=== PATIENT | male | born 1990 | race Caucasian/White ===

== ENCOUNTER 2024-06-14 11:54 | Outpatient (REF) | payer OTHER, SELFPAY ==
[2024-06-14 13:41] LABS: Hematocrit 41.3 % (42.0-52.0); Mean Corpuscular HGB Conc 33.9 g/dl (31.0-36.0); Mean Corpuscular Hemoglobin 31.5 pg (27.0-33.0); Mean Platelet Volume 10.8 fL (9.4-12.4); Platelet Count 223 X10*3/uL (160-400); Red Blood Count 4.44 X10*6/uL (4.60-5.80); Red Cell Distribution Width 12.1 % (11.0-16.0); White Blood Count 5.4 X10*3/uL (4.8-10.8)
[2024-06-14 13:50] LABS: Estimated Average Glucose 85 mg/dL; Hemoglobin A1c % 4.6 % (<6.0)
[2024-06-14 14:06] LABS: Alanine Aminotransferase 18 U/L (0-40); Albumin Level 4.4 g/dL (3.5-5.0); Alkaline Phosphatase 81 U/L (39-117); Anion Gap 9 (12-20); Aspartate Amino Transferase 19 U/L (5-37); Bilirubin Total 0.6 mg/dL (0.0-1.0); Blood Urea Nitrogen 12 mg/dL (9-16); Calcium 9.3 mg/dL (8.4-10.2); Carbon Dioxide 27 mmol/L (22-29); Chloride 108 mmol/L (96-108); Estimated Glomerular Filt Rate > 60; Glucose Random 89 mg/dL (60-115); Sodium 140 mmol/L (135-145)
[2024-06-15 08:15] LABS: Syphilis Screen Nonreactive (Nonreactive)
[2024-06-15 08:48] LABS: HIV AB/AG Nonreactive (Nonreactive); HIV Num 1 0.05 S/CO (0.00-0.99); Hepatitis B Surface Antigen Negative (Negative); ~HepC Num1 0.09 S/CO (0.00-0.79); ~Hepatitis C Antibody Nonreactive (Nonreactive)
[2024-06-15 13:36] LABS: CT PCR NOT DETECTED (Not Detect.); NG PCR NOT DETECTED (Not Detect.)
== END 2024-06-14 11:55 | disposition home or self-care (01) ==
LOC: HO.HHCL 11:54
PROVIDERS: Visit Provider Student in an Organized Health Care Education/Training Program
DX: R21 Rash and other nonspecific skin eruption (principal); Z13.1 Encounter for screening for diabetes mellitus
CPT/HCPCS: 36415; 80053; 83036; 85027; 86780; 86803; 87340; 87389; 87491; 87591

== ENCOUNTER 2024-12-13 15:06 | Outpatient (REF) | payer OTHER, SELFPAY ==
[2024-12-13 16:38] LABS: Alanine Aminotransferase 38 U/L (0-40); Albumin Level 4.4 g/dL (3.5-5.0); Alkaline Phosphatase 71 U/L (39-117); Aspartate Amino Transferase 25 U/L (5-37); Bilirubin Direct 0.2 mg/dL (0.0-0.5); Bilirubin Total 0.5 mg/dL (0.0-1.0); Total Protein 7.2 g/dL (6.5-8.0)
--- OUTSIDE RECORDS SUMMARY | 2024-12-13 17:30 | XMS_ITS | Encounter Summary ---
Author Organization [employer] Address [address] [facility] 7t [place] [address] Care Team Providers Care Second Class Welder Name Role Phone Name, Rehan ABEL Primary Care Provider [phone] Tasia Queen Unavailable Unavailable Encounter Details Date Type Department Care Team (Latest Contact Info) Description 10/19/2018 Abstract [facility], Provider, DDS Social History Tobacco Use Types Packs/Day Years Used Date Smoking Tobacco: Never Assessed Sex and Gender Information Value Date Recorded Sex Assigned at Male 07/28/2022 4:34 PM EDT Legal Sex Male 8:38 PM EDT Gender Identity Choose not to disclose 3 1:34 PM EST Sexual Orientation Don't know 10/11/2022 1: 34 PM EST documented as of this encounter Plan of Treatment Upcoming Encounters Date Type Department Care Team (Late st Contact Info) Description 01/10/2025 3:00 PM EDT Clinical Support [facility] [address] [place] [phone] Alyx Vasquez, RN 230 [place] [address] 02/14/2025 3:00 PM EDT Office Visit [facility] [address] [place] [address] Inez Sue LLD 9 [place] [address] 03/05/2025 9:15 AM EDT Office Visit [facility] [address] [place] [address] [phone] Denisa Lemus MD 230 [place] [address] 03/07/2025 2:00 PM EDT Office Visit [facility] 230 [place], [place] [phone] Rosanne Locke CNM 230 [place], [place] [phone] documented as of this encounter Visit Diagnoses Not on filedocumented in this encounter Care Teams Second Class Welder Relationship Specialty Start Date End Date Name, MD Rehan [address] [place] [address] [phone] PCP - General Family Medicine 09/24/19 09/28/23 Tasia Queen Health Navigator Financial Counseling and Assistance Services 10/30/24 documented as of this encounter
--- OUTSIDE RECORDS SUMMARY | 2024-12-13 17:30 | XMS_ITS | Encounter Summary ---
Author Organization [employer] Address [address] 7[address] [place] [address] Care Team Providers Care Coat Hanger Shaper Machine Operator Name Role Phone Tasia Queen Unavailable Unavailable Encounter Details Date Type Department Care Team (Latest Contact Info) Description 12/02/2024 Travel Social History Tobacco Use Types Packs/Day Years Used Date Smoking Tobacco: Never Passive Smoke Exposure: Never Smokeless Tobacco: Never Alcohol Use Standard Drinks/Week Comments Yes 0 (1 standard drink = 0.6 oz pur e alcohol) Alcohol Answer Date Recorded How often do you have a drink containing alcohol ? 0 10/30/2024 How many drinks containing a lcohol do you have on a typical day when you are drinking? 0 10/30/2024 How often do you have six or more drinks on one occasion? 0 10/30/2024 Housing Stability Answer Date Recorded What is your housing situation today? I have livdontae morales 10/30/[address] you li ve. Do you have problems with any of the following? None of the above 10/30/2024 Food Insecurity Answer Date Recorded Within the past 12 months, y ou worried that your food would run out before you got money to buy more: Never True 10/30/2024 Within the past 12 months,th e food you bought just didn't last and you didn't have enough money to get more: Never True 12/2024 Transportation Answer Date Recorded In the past 12 months, has l ack of transportation kept you from medical appts, meetings, work or from getting things needed for daily living? No 10/30/2024 Intimate Partner Violence Answer Date R ecorded Within the last year, have y ou been afraid of your partner or ex-partner? 2 10/30/2024 Within the last year, have y ou been humiliated or emotionally abused in other ways by your partner or ex-partner? 2 Within the last year, have y ou been kicked, hit, slapped, or otherwise physically hurt by your partner or ex-partner? 2 10/30/2024 Within the last year, have y ou been raped or forced to have any kind of sexual activity by your partner or ex-partner? 2 10/30/2024 Utilities Answer Date Recorded In the past 12 months, has t he [employer], gas, oil or water [employer] threatened to shut off services in your home? No 10/30/2024 Internet Access Answer Date Recorded Internet Access Q1 Yes 10/30/2024 Internet Access Q2 Not on file 10/30/2024 Sex and Gender Information Value Date Recorded [...] Description 01/10/2025 3:00 PM EDT Clinical Support [facility] [address] [place] [phone] Alyx Vasquez, DERRICK [address] [place] [phone] 02/14/2025 3:00 PM EDT Office Visit [facility] [address] [place] [address] Inez Sue LLD 9 [place] [address] 03/05/2025 9:15 AM EDT Office Visit [facility] [address] [place] [phone] Denisa Lemus MD [address] [place] [phone] 03/07/2025 2:00 PM EDT Office Visit [facility] 230 [place] [address] Rosanne Locke CNM [address] [place] [address] documented as of this encounter Visit Diagnoses Not on filedocumented in this encounter Care Teams Coat Hanger Shaper Machine Operator Relationship Specialty Start Date End Date Tasia Queen Health Navigator Financial Counseling and Assistance Services 10/30/24 documented as of this encounter
--- OUTSIDE RECORDS SUMMARY | 2024-12-13 17:30 | XMS_ITS | Encounter Summary ---
Author Organization [employer] Address [address] 7t [place] [address] Care Team Providers Care Mid Level Java Developer Name Role Phone Tasia Queen Unavailable Unavailable Encounter Details Date Type Department Care Team (Latest Contact Info) Description 12/13/2024 Travel Social History Tobacco Use Types Packs/Day [...] the past 12 months, has t he [employer], gas, oil or water [employer] threatened to shut off services in your [...] Description 01/10/2025 3:00 PM EDT Clinical Support [facility] [address] [place] [phone] Aylx Vasquez, DERRICK [address] [place] [phone] 02/14/2025 3:00 PM EDT Office Visit [facility] Dental [address] [place] [phone] Inez Sue LLD 9 [place] [address] 03/05/2025 9:15 AM EDT Office Visit [facility] [address] [place] [address] Denisa Lemus MD [address] [place] [phone] 03/07/2025 2:00 PM EDT Office Visit [facility] 230 [place] [address] Rosanne Locke CNM 230 [place] [address] documented as of this encounter Visit Diagnoses Not on filedocumented in this encounter Care Teams Mid Level Java Developer Relationship Specialty Start Date End Date Tasia Queen Health Navigator Financial Counseling and Assistance Services 10/30/24 documented as of this encounter
--- OUTSIDE RECORDS SUMMARY | 2024-12-13 17:30 | XMS_ITS | Encounter Summary ---
Author Organization [employer] Address [address] [facility] 7t [place] [address] Care Team Providers Care Hazmat Tanker Driver Name Role Phone Tasia Queen Unavailable Unavailable Encounter Details Date Type Department Care Team (Late st Contact Info) Description 11/29/2024 Orders Only [facility] 230 [place] [address] Carolina Yanes RN Social History Tobacco Use Types Packs/Day Years [...] is your housing situation today? I have liv morales 10/30/[address] you [...] the past 12 months, has t he electric, gas, oil or water company threatened to shut off services in your home? No 10/30/2024 Internet Access Answer Date Recorded Internet Access Q1 Yes 10/30/2024 Internet Access Q2 Not on file 10/30/2024 Sex and Gender Information Value Date Recorded Sex Assigned at Male 07/28/2022 4:34 PM EDT Legal Sex Male 8:38 PM EDT Gender Identity Choose not to disclose 1:34 PM EST Sexual Orientation Don't know 10/11/2022 1: 34 PM EST documented as of this encounter Plan of Treatment Upcoming Encounters Date Type Department Care Team (Late st Contact Info) Description 01/10/2025 3:00 PM EDT Clinical Support [address] [address] Alyx Vasquez RN 230 [place] [address] 02/14/2025 3:00 PM EDT Office Visit [facility] Dental 70 [place] [address] Inez Sue LLD [address] [place] [phone] 03/05/2025 9:15 AM EDT Office Visit [facility] [address] [place] [address] Denisa Lemus MD [address] [place] [address] [phone] 03/07/2025 2:00 PM EDT Office Visit [facility] [address] [place] [phone] Rosanne Locke CNM [address] [place] [phone] documented as of this encounter Procedures Procedure Name Priority Date/Time Associated Diagnosis Comments HEPATIC FUNCTION PANEL Routine 12/13/2024 3:11 PM EDT CHLAMYDIA/GONORRHEA THROAT SWAB ([place] DPH) Routine 11/22/2024 CHLAMYDIA/GONORRHEA - URINE ([place] DP) Routine 11/22/2024 SYPHILIS ABS ([place] DP) Routine 11/22/2024 HEPATITIS C ANTIBODY ([place] DP) Routine 11/22/2024 HIV ANTIBODY/ANTIGEN ([place] DP) Routine 11/22/2024 documented in this encounter Results * Hepatic Function Panel (12/13/2024 3:11 PM EDT) Bilirubin, Total 0.5 0.0 - 1.0 mg/dL [facility] Bilirubin, Direct 0.2 0.0 - 0.5 mg/dL [facility] Aspartate Amino Transferase 25 5 - 37 U/L [facility] Alanine Aminotransferase 38 0 - 40 U/L [facility] Total Protein 7.2 6.5 - 8.0 g/dL [facility] Albumin Level 4.4 3.5 - 5.0 g/dL [facility] Alkaline Phosphatase 71 39 - 117 U/L [facility] 12/13/2024 3:11 PM EDT 12/13/2024 4:20 PM EDT us Rosanne FERMINM LAB BLOOD ORDERABLES Rebecca l Result [facility] [address] [place] [address] [phone] * HIV Ab/Ag ([place] DPH) (11/22/2024) HIV Ag/Ab Nonreactive Blood 11/22/2024 Result [facility] Provider LAB BLOOD ORDERABLES Rebecca l Result * Hepatitis C Antibody ([place] DPH) (11/22/2024) Hepatitis C Ab Nonreactive Blood 11/22/2024 Result [facility] Provider LAB BLOOD ORDERABLES Rebecca l Result * Syphilis Antibodies (DPH) (11/22/2024) Syphilis Abs Nonreactive Borderline, Nonreactive, Weakly Reactive, Inconclusive, Specimen unsatisfactory for evaluation Blood Venous blood specimen / Unknown 11/22/2024 Result [facility] Provider LAB BLOOD ORDERABLES Rebecca l Result * Chlamydia/Gonorrhea Throat Swab ([place] DPH) (11/22/2024) Chlamydia Throat Swab Negative Gonorrhea Throat Swab Negative Swab 11/22/2024 Result [facility] Provider LAB MICROBIOLOGY - GENERA L ORDERABLES Final Result * Chlamydia/Gonorrhea, Urine ([place] DPH) (11/22/2024) Chlamydia, Urine Negative Negative, Indeterminate, None Detected, Invalid, Specimen unsatisfactory for evaluation, Weakly Positive Gonorrhea, Urine Negative Negative, Indeterminate, None Detected, Invalid, Specimen unsatisfactory for evaluation, Weakly Positive Urine 11/22/2024 us Historical Provider MD LAB URINE ORDERABLES Rebecca l Result documented in this encounter Visit Diagnoses Not on filedocumented in this encounter Care Teams Hazmat Tanker Driver Relationship Specialty Start Date End Date Tasia Queen Health Navigator Financial Counseling and Assistance Services 10/30/24 documented as of this encounter
--- OUTSIDE RECORDS SUMMARY | 2024-12-13 17:30 | XMS_ITS | Encounter Summary ---
Author Organization [employer] Address [address] 7t [place] [address] Care Team Providers Care Robotics Technologist Name Role Phone Tasia Queen Unavailable Unavailable Encounter Details Date Type Department Care Team (Latest Contact Info) Description 11/16/2024 Travel Social History Tobacco Use Types Packs/Day [...] the past 12 months, has t he [email or web address], gas, oil or water [employer] threatened to shut off services in your [...] Description 01/10/2025 3:00 PM EDT Clinical Support [facility] [address] [place] [phone] Alyx Vasquez, DERRICK [address] [place] [phone] 02/14/2025 3:00 PM EDT Office Visit [facility] Dental [address] [place] [address] Inez uSe LLD 9 [place] [address] 03/05/2025 9:15 AM EDT Office Visit [facility] [address] [place] [phone] Denisa Lemus MD [address] [place] [phone] 03/07/2025 2:00 PM EDT Office Visit [facility] 230 [place] [address] Rosanne Locke CNM 230 [place] [address] documented as of this encounter Visit Diagnoses Not on filedocumented in this encounter Care Teams Robotics Technologist Relationship Specialty Start Date End Date Tasia Queen Health Navigator Financial Counseling and Assistance Services 10/30/24 documented as of this encounter
--- OUTSIDE RECORDS SUMMARY | 2024-12-13 17:30 | XMS_ITS | Clinical Summary ---
Author Organization [employer] Address [address] [facility] 7t [place] [address] Care Team Providers Care Fuel Manager Name Role Phone Tasia Queen Unavailable Unavailable Allergies No known active allergies Medications Cabotegravir ER 600 MG/3ML Suspension Extended Release Inject 1 each into the muscle 1 (one) time for 1 dose. Ventrogluteal. Bring to office for injection 3 mL 1 5 12/05/19 25 Hospital, Clinic, or Other Facility Administered Medication Ordered Dose Route Frequency Start Date End Date Status Cabotegravir ER Suspension Extended Release 600 mgIndications:On pre-exposure prophylaxis for HIV 600 mg IM Once 12/13/2024 12/13/2024 Ended Active Problems Problem Noted Date Diagnosed Date Skin rash 06/14/2024 Assessment & Plan (06/14/2024 7:44 PM EDT): Rash in groins appears intertrigo from sweating Urinediptisk neg -advised to keep skin dry and to change frequently underwear -clotrimazole /topical steroids BID x 3 to 4 weeks -cbc,chem , hb1AC , STI test -will call pt w results -alarm signs and symptoms -added to [facility] New Patient wait list as of 06/04/24 from documentation Lumbago with sciatica, left side 08/17/2022 Overweight 08/17/2022 Seasonal allergies 08/17/2022 Encounters Date Type Department Care Team Description 12/13/2024 3:00 PM EDT Clinical Support [facility] MED[facility]INE [address] [place] [address] Alyx Vasquez, DERRICK On pre-exposure prophylaxis for HIV 12/13/2024 Travel 12/12/2024 Travel 12/04/2024 11:00 AM EDT Office Visit [facility]INE [address] [place] [address] Rosanne Locke CNM Encounter for pre-exposure prophylaxis for HIV (Primary Dx) 12/04/2024 Travel 12/02/2024 Travel 11/29/2024 Orders Only [facility] MEDICINE [address] [place] [address] Carolina Yanes RN 11/16/2024 Travel 10/30/2024 Patient Outreach [facility] Case Management [address] [place] [address] Tasia Queen Insurance Intervention (Updates) 10/30/2024 Patient Outreach [facility] Case Management [address] [place] [address] Henrry Guallpa [facility] Medical Appt from Last 3 Months Immunizations Name Administration Dates Next Due Hep B, adult 10/13/2021,08/13/2019,07/16/2019 IPV 04/17/2018 Influenza, IIV3, injectable 10/13/2021, 9 MMR 04/17/2018 Tdap 04/17/2018 Social History Tobacco Use Types Packs/Day Years [...] the past 12 months, has t he [employer], oil or water [employer] threatened to shut off services in your [...] Don't know 10/11/2022 1: 34 PM EST Last Filed Vital Signs Vital Sign Reading Time Taken Comments Blood Pressure 119/69 12/04/2024 10:53 AM EDT Pulse 66 12/04/2024 10:53 AM EDT Temperature 36.6 ??C (97.9 ??F) 12/04/2024 10:53 AM E DT Respiratory Rate 21 12/04/2024 10:53 AM EDT Oxygen Saturation 99% 12/04/2024 10:53 AM EDT Inhaled Oxygen Concentration - - Weight 85.3 kg (188 lb) 12/04/2024 10:53 AM EDT Height 174 cm (5' 8.5 ) 06/14/2024 10:32 AM EDT Body Mass Index 28.17 06/14/2024 10:32 AM EDT Plan of Treatment Upcoming Encounters Date Type Department Care Team (Late st Contact Info) Description 01/10/2025 3:00 PM EDT Clinical Support [facility] MEDICINE [address] [place] [address] Alyx Vasquez, RN [address] [place] [address] 02/14/2025 3:00 PM EDT Office Visit [facility] Dental [address] [place] [address] Inez Sue LLD 9 [place] [address] 03/05/2025 9:15 AM EDT Office Visit [address] [address] Denisa Lemus MD [address] [place] [phone] 03/07/2025 2:00 PM EDT Office Visit [address] [address] Rosanne Locke CNM [address] [place] [address] Health Maintenance Due Date Last Done Comments Depression Screening 1989 Lipid Panel 1989 SDOH Screening 1989 IPV Vaccines (2 of 3 - Adult catch-up series) 05/15/2018 04/17/2018 COVID-19 Vaccine ( season) 2024 10/26/2021, 03/08/2021, 02/08/2021 Influenza Vaccine (#1) 2024 , 07/19/2022, 10/13/2021, Additional history exists Dental Oral Exam 02/19/2025 08/21/2024, , 09/08/2023, Additional history exists Dental Prophylaxis 02/19/2025 08/21/2024, 0 05/10/2024, 09/08/2023, Additional history exists Dental X-Ray: Bitewings 05/11/2025 05/10/20 24, 03/09/2023, 09/06/2022, Additional history exists Alcohol/Substance Use Screening 10/30/2025 10/30/2024 Family Planning (PISQ) 12/04/2025 12/04/2024 Tobacco Screening 12/04/2025 12/04/2024 Dental X-Ray: Full Mouth 03/10/2026 023, 04/10/2018, 05/27/2016, Additional history exists DTaP/Tdap/Td Vaccines (2 - Td or Tdap) 04/17/2028 04/17/2018 Zoster Vaccines (1 of 2) 2039 RSV Patients and Patients Aged 60 years or older (1 - 1-dose 75+ series) 2064 Hepatitis B Vaccines Completed 10/13/2021, 08/13/2019, 07/16/2019 HIV Screening Completed 11/22/2024, 06/14/2024 Hepatitis C Screening Completed 11/22/2024, 024 HIB Vaccines Aged Out No longer eligi ble based on patient's age to complete this topic HPV Vaccines Aged Out No longer eligi ble based on patient's age to complete this topic Hepatitis A Vaccines Aged Out No long er eligible based on patient's age to complete this topic Meningococcal Vaccine Aged Out No rehan elvia eligible based on patient's age to complete this topic Pneumococcal Vaccine: Pediatrics (0 to 5 Years) and At-Risk Patients (6 to 49) Years) Aged Out No longer eligible based on patient's age to complete this topic RSV under 20 months Aged Out No longe r eligible based on patient's age to complete this topic Rotavirus Vaccines Aged Out No longer eligible based on patient's age to complete this topic Procedures Procedure Name Priority Date/Time Associated Diagnosis Comments POCT RAPID HIV SCREENING Routine 12/13/2024 3:38 PM EDT On pre-exposure prophylaxis for HIV HEPATIC FUNCTION PANEL Routine 12/13/2024 3:11 PM EDT HIV ANTIBODY/ANTIGEN ([place] DPH) Routine 11/22/2024 HEPATITIS C ANTIBODY ([place] DPH) Routine 11/22/2024 SYPHILIS ABS ([place] DPH) Routine 11/22/2024 CHLAMYDIA/GONORRHEA - URINE ([place] DPH) Routine 11/22/2024 CHLAMYDIA/GONORRHEA THROAT SWAB ([place] DPH) Routine 11/22/2024 Full PROPHYLAXIS - ADULT Routine 08/21/2024 2:00 PM EST PERIODIC ORAL EVALUATION - ESTABLISHED PATIENT Routine 08/21/2024 2:00 PM EST BITEWINGS - 4 RADIOGRAPHIC IMAGES Routine 05/10/2024 4:00 PM EDT INTRAORAL - COMPLETE SERIES OF RADIOGRAPHIC IMAGES Routine 03/09/2023 10:00 AM EDT Encounter for dental examination from Last 3 Months or Most Recently Relevant to Health Maintenance Results * POCT RAPID HIV SCREENING (12/13/2024 3:38 PM EDT) Blood 12/13/2024 3:38 PM EDT Narrative Alyx Vasquez RN - 12/13/2024 3:38 PM EDT NEGATIVE [facility] POINT OF CARE TEST ENTER/EDIT OR DERABLES Final Result * Hepatic Function Panel (12/13/2024 3:11 PM EDT) Bilirubin, Total 0.5 0.0 - 1.0 mg/dL [facility] Bilirubin, Direct 0.2 0.0 - 0.5 mg/dL [facility] Aspartate Amino Transferase 25 5 - 37 U/L [facility] Alanine Aminotransferase 38 0 - 40 U/L [facility] Total Protein 7.2 6.5 - 8.0 g/dL [facility] Albumin Level 4.4 3.5 - 5.0 g/dL [facility] Alkaline Phosphatase 71 39 - 117 U/L [facility] 12/13/2024 3:11 PM EDT 12/13/2024 4:20 PM EDT Rosanne Locke CNM LAB BLOOD ORDERABLES Rebecca l Result [facility] [address] [place] [address] [phone] * Chlamydia/Gonorrhea Throat Swab ([place] DPH) (11/22/2024) Chlamydia Throat Swab Negative Gonorrhea Throat Swab Negative Swab 11/22/2024 Result [facility] Provider LAB MICROBIOLOGY - GENERA L ORDERABLES Final Result * Chlamydia/Gonorrhea, Urine ([place] DPH) (11/22/2024) Chlamydia, Urine Negative Negative, Indeterminate, None Detected, Invalid, Specimen unsatisfactory for evaluation, Weakly Positive Gonorrhea, Urine Negative Negative, Indeterminate, None Detected, Invalid, Specimen unsatisfactory for evaluation, Weakly Positive Urine 11/22/2024 Result [facility] Historical Provider LAB URINE ORDERABLES Rebecca l Result * Syphilis Antibodies (DPH) (11/22/2024) Syphilis Abs Nonreactive Borderline, Nonreactive, Weakly Reactive, Inconclusive, Specimen unsatisfactory for evaluation Blood Venous blood specimen / Unknown 11/22/2024 Historical Provider LAB BLOOD ORDERABLES Rebecca l Result * Hepatitis C Antibody ([place] DPH) (11/22/2024) Hepatitis C Ab Nonreactive Blood 11/22/2024 Historical Provider LAB BLOOD ORDERABLES Rebecca l Result * HIV Ab/Ag ([place] DPH) (11/22/2024) HIV Ag/Ab Nonreactive Blood 11/22/2024 Historical Provider LAB BLOOD ORDERABLES Rebecca [email or web address] Result from Last 3 Months Insurance [employer] Member Subscriber Plan / Payer (Ef fective 2022-Present) Name:Chin Rosana Relation to Subscriber:Self Name:Rosana Neely Payer ID:Not on file Group ID:Not on file Type:Medicaid Address: [address] FULL [employer] [facility] FULL [facility] MEDICAID LIMITED ADULT Member Subscriber Plan / Payer (Ef fective 2022-Present) Name:Rosana Neely Relation to Subscriber:Self Name:Rosana Neely Payer ID:Not on file Group ID:Not on file Type:Not on file Address: [address] DENTAL - [facility] FULL (MEDICAID) [address] [place] [address] Care Teams Fuel Manager Relationship Specialty Start Date End Date Tasia Queen Health Navigator Financial Counseling and Assistance Services 10/30/24
--- OUTSIDE RECORDS SUMMARY | 2024-12-13 17:30 | XMS_ITS | Encounter Summary ---
Author Organization [employer] Address [address] [facility] 7t [place] [address] Care Team Providers Care Surgery Specialist Name Role Phone Tasia Queen Unavailable Unavailable Encounter Details Date Type Department Care Team (Latest Contact Info) Description 12/13/2024 3:00 PM EDT Clinical Support [facility]INE [address] [place] [address] Alyx Vasquez RN [address] [place] [address] On pre-exposure prophylaxis for HIV Social History Tobacco Use Types Packs/Day Years [...] PM EST documented as of this encounter Progress Notes * Alyx Vasquez RN - 12/13/2024 3:00 PM EDT Pt here for first injection of APRETUDE (600-mg cabotegravir). [Pt did not take optional oral lead-in of cabotegravir and tolerated well.] Reviewed and confirmed: Negative 4th generation HIV-1 test within last 7 days. HIV-1 RNA assay test (HIV VL) negative or pending at time of visit. No previous hypersensitivity reaction to cabotegravir. Reviewed medication list; pt is not taking carbamazepine, oxcarbazepine, phenobarbital, phenytoin, rifampin, or rifapentine. Pt weighs over 77 lbs. Pt does not have gluteal implants. Pt is not (or has consulted with a provider). Pt does not have any symptoms of acute HIV (fever, fatigue, myalgia, sore throat, rash). LFTs done within last 6 months, or included in initial labs today. Last LFTs: drawn today Hep B status (if stopping Descovy or Truvada): test [if applicable]: Patient questions answered. Reviewed importance of attending lab and injection appointments. Reviewed that medication is an IM injection in gluteal muscle and cannot be taken out once it is given. 600 mg cabotegravir injected IM into left gluteal muscle. Pt advised to not rub the injection sites. Pt tolerated well, no adverse reaction noted. Pt given phone number for RN and PrEP navigator if they have any questions. Teaching points reviewed: Stop Descovy or Truvada if taking. Importance of adherence to injection and lab monitoring schedule: once monthly for 2 mos, then every 2 mos afterward. Importance of contacting provider/RN for sooner HIV testing: When recent exposures to HIV-1 are suspected or clinical symptoms consistent with acute HIV-1 (eg, fever, fatigue, myalgia, sore throat, rash) are present Upon diagnosis of any other STI Reviewed long ???tail?? effect of medication. Apretude (IM cabotegravir) can be present in the body for up to 12 months after an injection, though not at a level to protect from HIV acquisition. There is a risk that if someone did acquire HIV-1 before, during, or within 12 mos of discontinuation of Apretude, that strain of HIV-1 could be resistant if they are not current on dosing or are not on a different form of PrEP, such as Truvada or Descovy. Counseled on site reaction and side effects (abdominal pain, jaundice, rash, depression etc.) that should be brought to provider attention. PrEP does not protect against STIs other than HIV, or other blood-borne pathogens. If you plan to miss a dose by more than 7 days, let us know as soon as possible so we can plan for this. You can take oral cabotegravir for up to 2 months to cover for 1 missed injection. If you debbie dose by accident, contact us as soon as you can so we can make a plan to re-start PrEP - if desired and appropriate. Plan: PrEP Navigator check - in 1 week Return for HIV, [if applicable] testing in 1 month or 2 months. Ideally this would be less than 7 days from your next injection appointment. It can be done the same day as injection provided 4th gen rapid HIV-1 test is non- reactive before injection and HIV-1 RNA assay has been drawn at lab. Thorough STI testing every other visit (every 4 mos) or sooner if needed in addition to HIV testing. LFTs 6 months after first injection, then annually: Due 06/15/25 Appointment for 2nd month of injections (1 month and then every 2 mos thereafter w/ 7d ronnie period): 01/10/25 at 3pm documented in this encounter Plan of Treatment Upcoming Encounters Date Type Department Care Team (Late st Contact Info) Description 01/10/2025 3:00 PM EDT Clinical Support [address] [address] Alyx Vasquez RN [address] [place] [address] 02/14/2025 3:00 PM EDT Office Visit [facility] Dental [address] [place] [address] Inez Sue LLD [address] [place] [phone] 03/05/2025 9:15 AM EDT Office Visit [address] [address] Denisa Lemus MD [address] [place] [address] 03/07/2025 2:00 PM EDT Office Visit [address] [address] Rosanne Locke CNM [address] [place] [address] Scheduled Orders Name Type Priority Associated Diagnoses Orde r Schedule Hepatic Function Panel Lab Routine On pre-exposure prophylaxis for HIV Expected: 12/13/2024 (Approximate), Expires: 12/13/2025 HIV-1 RNA, Quantitative, Real-Time PCR Lab Routine On pre-exposure prophylaxis for HIV Expected: 12/13/2024 (Approximate), Expires: 12/13/2025 documented as of this encounter Procedures Procedure Name Priority Date/Time Associated Diagnosis Comments POCT RAPID HIV SCREENING Routine 12/13/2024 3:38 PM EDT On pre-exposure prophylaxis for HIV documented in this encounter Results * POCT RAPID HIV SCREENING (12/13/2024 3:38 PM EDT) Blood 12/13/2024 3:38 PM EDT Narrative Alyx Vasquez RN - 12/13/2024 3:38 PM EDT NEGATIVE Crista GONZALEZ POINT OF CARE TEST ENTER/EDIT OR DERABLES Final Result documented in this encounter Visit Diagnoses Diagnosis On pre-exposure prophylaxis for HIV documented in this encounter Administered Medications Inactive Administered Medications - up to 3 most recent administrations Medication Order MAR Action Action Date Dose Rate Site Cabotegravir ER Suspension Extended Release 600 mg 600 mg, Intramuscular, Once, On Lizeth 12/13/24 at 1545, For 1 dose, Ventrogluteal.Indication s:On pre-exposure prophylaxis for HIV Given 12/13/2024 3:45 PM EDT 600 mg Left Upper Buttock documented in this encounter Care Teams Surgery Specialist Relationship Specialty Start Date End Date Tasia Queen Health Navigator Financial Counseling and Assistance Services 10/30/24 documented as of this encounter
--- OUTSIDE RECORDS SUMMARY | 2024-12-13 17:30 | XMS_ITS | Encounter Summary ---
Author Organization [employer] Address 75 [facility] 7t [place] [address] Care Team Providers Care Garage Helper Name Role Phone Name, Rehan ABEL Primary Care Provider [phone] Tasia Queen Unavailable Unavailable Encounter Details Date Type Department Care Team (Latest Contact Info) Description 10/25/2019 Abstract [facility] Dental, Provider, DDS Social [...] Description 01/10/2025 3:00 PM EDT Clinical Support [facility] MEDICINE [address] [place] [address] Alyx Vasquez, RN [address] [place] [address] 02/14/2025 3:00 PM EDT Office Visit [facility] Dental [address] [place] [address] Inez Sue LLD 9 [place] [address] 03/05/2025 9:15 AM EDT Office Visit [facility] MEDICINE [address] [place] [address] [phone] Denisa Lemus MD 230 [place] [address] 03/07/2025 2:00 PM EDT Office Visit [facility] MEDICINE [address] [place], [place] [phone] Rosanne Locke CNM [address] [place], [place] [phone] documented as of this encounter Visit Diagnoses Not on filedocumented in this encounter Care Teams Garage Helper Relationship Specialty Start Date End Date Name, MD Rehan [address] [place] [address] [phone] PCP - General Family Medicine 09/24/19 09/28/23 Tasia Queen Health Navigator Financial Counseling and Assistance Services 10/30/24 documented as of this encounter
--- OUTSIDE RECORDS SUMMARY | 2024-12-13 17:30 | XMS_ITS | Encounter Summary ---
Author Organization [employer] Address 75 [facility] 7t [place] [address] Care Team Providers Care Wholesale And Retail Merchant Name Role Phone Name, Rehan ABEL Primary Care Provider [phone] Tasia Queen Unavailable Unavailable Encounter Details Date Type Department Care Team (Latest Contact Info) Description 03/02/2022 Abstract [facility] Dental, Provider, DDS Social [...] Clinical Support [facility] MEDICINE [address] [place] [phone] Alyx Vasquez, RN [address] [place] [address] 02/14/2025 3:00 PM EDT Office Visit [facility] Dental [address] [place] [address] Inez Sue LLD 9 [place] [address] 03/05/2025 9:15 AM EDT Office Visit [facility]INE [address] [place] [address] [phone] Denisa Lemus MD [address] [place] [address] 03/07/2025 2:00 PM EDT Office Visit [facility] [address] [place], [place] [phone] Rosanne Locke CNM [address] [place], [place] [phone] documented as of this encounter Visit Diagnoses Not on filedocumented in this encounter Care Teams Wholesale And Retail Merchant Relationship Specialty Start Date End Date Name, MD Rehan [address] [place] [address] [phone] PCP - General Family Medicine 09/24/19 09/28/23 Tasia Queen Health Navigator Financial Counseling and Assistance Services 10/30/24 documented as of this encounter
--- OUTSIDE RECORDS SUMMARY | 2024-12-13 17:30 | XMS_ITS | Encounter Summary ---
Author Organization [employer] Address [address] [facility] 7t [place] [address] Care Team Providers Care Wool Tamper Name Role Phone Name, Rehan ABEL Primary Care Provider [phone] Tasia Queen Unavailable Unavailable Encounter Details Date Type Department Care Team (Latest Contact Info) Description 04/19/2019 Abstract [facility] Dental, Provider, DDS Social [...] Description 01/10/2025 3:00 PM EDT Clinical Support [facility] MEDICINE [address] [place] [address] Alyx Vasquez, RN [address] [place] [address] 02/14/2025 3:00 PM EDT Office Visit [facility] Dental [address] [place] [address] Inez Sue LLD 9 [place] [address] 03/05/2025 9:15 AM EDT Office Visit [facility] MEDICINE [address] [place] [address] [phone] Denisa Lemus MD 230 [place] [address] 03/07/2025 2:00 PM EDT Office Visit [facility] MED[facility]INE [address] [place], [place] [phone] Rosanne Locke CNM [address] [place], [place] [phone] documented as of this encounter Visit Diagnoses Not on filedocumented in this encounter Care Teams Wool Tamper Relationship Specialty Start Date End Date Name, MD Rehan [address] [place] [address] [phone] PCP - General Family Medicine 09/24/19 09/28/23 Tasia Queen Health Navigator Financial Counseling and Assistance Services 10/30/24 documented as of this encounter
--- OUTSIDE RECORDS SUMMARY | 2024-12-13 17:30 | XMS_ITS | Encounter Summary ---
Author Organization [employer] Address [address] [facility] [address] 7t [place] [address] Care Team Providers Care Field Sales Specialist Name Role Phone Tasia Queen Unavailable Unavailable Encounter Details Date Type Department Care Team (Latest Contact Info) Description 12/04/2024 Travel Social History Tobacco Use Types Packs/Day [...] the past 12 months, has t he [employer], gas, oil or water [employer] threatened to shut off services in your [...] Description 01/10/2025 3:00 PM EDT Clinical Support [facility] MEDICINE [address] [place] [phone] Alyx Vasquez, DERRICK [address] [place] [phone] 02/14/2025 3:00 PM EDT Office Visit [facility] Dental [address] [place] [address] Inez Sue LLD [address] [place] [address] 03/05/2025 9:15 AM EDT Office Visit [facility] MEDICINE [address] [place] [address] Denisa Lemus MD [address] [place] [address] 03/07/2025 2:00 PM EDT Office Visit [facility]INE [address] [place] [address] Rosanne Locke CNM [address] [place] [address] documented as of this encounter Visit Diagnoses Not on filedocumented in this encounter Care Teams Field Sales Specialist Relationship Specialty Start Date End Date Tasia Queen Health Navigator Financial Counseling and Assistance Services 10/30/24 documented as of this encounter
--- OUTSIDE RECORDS SUMMARY | 2024-12-13 17:30 | XMS_ITS | Encounter Summary ---
Author Organization [employer] Address 75 [facility] 7t [place] [address] Care Team Providers Care Care Management Assistant Name Role Phone Name, Rehan ABEL Primary Care Provider [phone] Tasia Queen Unavailable Unavailable Encounter Details Date Type Department Care Team (Latest Contact Info) Description 02/03/2021 Abstract [facility] Dental, Provider, DDS Social [...] Description 01/10/2025 3:00 PM EDT Clinical Support [facility] MEDICINE [address] [place] [phone] Alyx Vasquez, RN [address] [place] [address] 02/14/2025 3:00 PM EDT Office Visit [facility] Dental [address] [place] [address] Inez Sue LLD 9 [place] [address] 03/05/2025 9:15 AM EDT Office Visit [facility] MEDICINE [address] [place] [address] [phone] Denisa Lemus MD 230 [place] [address] 03/07/2025 2:00 PM EDT Office Visit [facility] MED[facility]INE [address] [place], [place] [phone] Rosanne Locke CNM 230 [place], [place] [phone] documented as of this encounter Visit Diagnoses Not on filedocumented in this encounter Care Teams Care Management Assistant Relationship Specialty Start Date End Date Name, MD Rehan [address] [place] [address] [phone] PCP - General Family Medicine 09/24/19 09/28/23 Tasia Queen Health Navigator Financial Counseling and Assistance Services 10/30/24 documented as of this encounter
--- OUTSIDE RECORDS SUMMARY | 2024-12-13 17:30 | XMS_ITS | Encounter Summary ---
Author Organization [email or web address] Address 75 [facility] 7t [place] [address] Care Team Providers Care Hooker Up Name Role Phone Tasia Queen Unavailable Unavailable Encounter Details Date Type Department Care Team (Late st Contact Info) Description 12/04/2024 11:00 AM EDT Office Visit [facility]INE [address] [place] [address] Rosanne Locke CNM [address] [place] [address] Encounter for pre-exposure prophylaxis for HIV (Primary Dx) Social History Tobacco Use Types Packs/Day Years [...] the past 12 months, has t he [employer], gas, oil or water company threatened to [...] PM EST documented as of this encounter Last Filed Vital Signs Vital Sign Reading Time Taken Comments Blood Pressure 119/69 12/04/2024 10:53 AM EDT Pulse 66 12/04/2024 10:53 AM EDT Temperature 36.6 ??C (97.9 ??F) 12/04/2024 10:53 AM E DT Respiratory Rate 21 12/04/2024 10:53 AM EDT Oxygen Saturation 99% 12/04/2024 10:53 AM EDT Inhaled Oxygen Concentration - - Weight 85.3 kg (188 lb) 12/04/2024 10:53 AM EDT Height - - Body Mass Index 28.17 06/14/2024 10:32 AM EDT documented in this encounter Progress Notes * ZANDER YousifM - 12/04/2024 11:00 AM EDT Subjective Patient ID: Rosana Neely is a 34 y.o. adult who presents for PrEP HIV, Hep C, syphilis, oral/urine Gonorrhea/Chlamydia neg 11/22/2024. HBV vaccine x 3. Last sexuallyactive 3-4 weeks ago. AMAB/AFAB partners, vaginal and oral sex. Interested in HIV prevention. Normal LFTsm BUN/creatinine 05/2024 We discussed injectable PrEP (Apretude) at our visit today. Reviewed and confirmed: Pt has no previous hypersensitivity reaction to cabotegravir. Pt is not taking carbamazepine, oxcarbazepine, phenobarbital, phenytoin, rifampin, or rifapentine. Pt weighs over 77 lbs. Pt does not have gluteal implants. Pt does not have any symptoms of acute HIV such as night sweats, fever, fatigue, myalgia, sore throat, rash, lymphadenopathy. A 4th gen rapid HIV-1 test and an HIV RNA VL will be drawn before each cabotegravir injection. LFTs have been done within last 6 months. Reviewed long tail effect of medication. Pt aware that once injected, Apretude cannot be taken out, and it can stay in body for up to 12 mos, though not at a level to prevent HIV acquisition. Thereis a risk that if someone did acquire HIV-1 before, during, or within 12 mos of discontinuation of Apretude, that strain of HIV-1 could be resistant if they are not current on dosing or are not on a different form of PrEP, such as Truvada or Descovy. It is important to adhere to injection and lab monitoring schedule: once monthly for 2 mos, then every 2 mos afterward, with 7d ronnie period PrEP Navigator can be contacted at [phone] or [phone] and will be following up with pt at regular intervals [facility] PrEP team has been notified that pt interested in starting injectable PrEP Review of Systems Constitutional: Negative for chills and fever. HENT: Negative for sore throat. Endocrine: Negative for cold intolerance and heat intolerance. Skin: Negative for rash. Objective BP 119/69 Pulse 66 Temp 97.9 ??F (36.6 ??C) (Temporal) Resp 21 Wt 188 lb (85.3 kg) SpO2 99% BMI 28.17 kg/m?? Physical Exam Constitutional: Appearance: Normal appearance. Neurological: Mental Status: Josael is alert. Psychiatric: Mood and Affect: Mood normal. Behavior: Behavior normal. Assessment/Plan Diagnoses and all orders for this visit: Encounter for pre-exposure prophylaxis for HIV Chart routed to [facility] PrEP team. Apretude rx sent to pharmacy. Will repeat HIV just prior to injection appointment. Thorough STI testing every other visit (every 4 mos) or sooner if needed in addition to HIV testing. LFTs 6 months after first injection, then annually. Appointment for 2nd month of injections (1 month x2 and then every 2 mos thereafter w/ 7d ronnie period) to be scheduled. Discussed medication use, frequency of injections, and common ISRs. Discussed process for starting CAB IM: including checking insurance coverage, loading IM dose with 4 week interval between first two injections, then injections every 8 weeks with one week window before or after due date when able to receive Rx. Discussed Mpox and HPV vaccines as well as DoxyPEP. Given information on all. May get Mpox vaccine at [facility], HPV vaccine at our pharmacy. I am happy to rx DoxyPEP at any time. He will think it over and let me know. Patient education reviewed: Importance of contacting provider/RN for sooner HIV testing: When recent exposures to HIV-1 are suspected or clinical symptoms consistent with acute HIV-1 (eg, fever, fatigue, myalgia, sore throat, rash) are present Upon diagnosis of any other STI Many people have some pain/swelling at injection site for a few days after injections. Notify clinic if you have a site reactions (increasing redness, swelling, worsening pain) Notify clinic if you get side effects such as abdominal pain, jaundice (yellowing skin or eyes), rash, worsening depression, or anything else unusual. PrEP does not protect against STIs other [...] re-start PrEP - if desired and appropriate. Other orders - Cabotegravir ER 600 MG/3ML Suspension Extended Release; Inject 1 each into the muscle 1 (one) time for 1 dose. Ventrogluteal. Bring to office for injection documented in this encounter Plan of Treatment Upcoming Encounters Date Type Department Care Team (Late st Contact Info) Description 01/10/2025 3:00 PM EDT Clinical Support [address] [address] Alyx Vasquez, RN [address] [place] [address] 02/14/2025 3:00 PM EDT Office Visit [facility] Dental [address] [place] [address] Inez Sue LLD [address] [place] [address] 03/05/2025 9:15 AM EDT Office Visit [address] [address] Denisa Lemus MD [address] [place] [address] 03/07/2025 2:00 PM EDT Office Visit [address] [address] Rosanne Locke CNM [address] [place] [phone] documented as of this encounter Visit Diagnoses Diagnosis Encounter for pre-exposure prophylaxis for HIV- Primary documented in this encounter Care Teams Hooker Up Relationship Specialty Start Date End Date Tasia Queen Health Navigator Financial Counseling and Assistance Services 10/30/24 documented as of this encounter
--- OUTSIDE RECORDS SUMMARY | 2024-12-13 17:30 | XMS_ITS | Encounter Summary ---
Author Organization [employer] Address [address] [facility] [address] 7t [place] [address] Care Team Providers Care Triage Specialist Name Role Phone Tasia Queen Unavailable Unavailable Encounter Details Date Type Department Care Team (Latest Contact Info) Description 12/12/2024 Travel Social History Tobacco Use Types Packs/Day [...] the past 12 months, has t he [employer], gas, oil or water [employer] threatened to shut off services in your [...] 01/10/2025 3:00 PM EDT Clinical Support [facility] MEDICINE [address] [place] [address] Alyx Vasquez, DERRICK [address] [place] [address] 02/14/2025 3:00 PM EDT Office Visit [facility] Dental [address] [place] [address] Inez Sue LLD 9 [place] [address] 03/05/2025 9:15 AM EDT Office Visit [facility] MEDICINE [address] [place] [phone] Denisa Lemus MD [address] [place] [address] 03/07/2025 2:00 PM EDT Office Visit [facility] MED[facility]INE [address] [place] [address] Rosanne Locke CNM [address] [place] [address] documented as of this encounter Visit Diagnoses Not on filedocumented in this encounter Care Teams Triage Specialist Relationship Specialty Start Date End Date Tasia Queen Health Navigator Financial Counseling and Assistance Services 10/30/24 documented as of this encounter
--- OUTSIDE RECORDS SUMMARY | 2024-12-13 17:30 | XMS_ITS | Encounter Summary ---
Author Organization [email or web address] Address [address] [facility] 7t [place] [address] Care Team Providers Care Barber Apprentice Name Role Phone Name, Rehan ABEL Primary Care Provider [phone] Taisa Queen Unavailable Unavailable Encounter Details Date Type Department Care Team (Latest Contact Info) Description 07/16/2020 Abstract [facility] Dental, Provider, DDS Social [...] Description 01/10/2025 3:00 PM EDT Clinical Support [facility] MEDICINE [address] [place] [phone] Alyx Vasquez, RN [address] [place] [address] 02/14/2025 3:00 PM EDT Office Visit [facility] Dental [address] [place] [address] Inez Sue LLD 9 [place] [address] 03/05/2025 9:15 AM EDT Office Visit [facility] MED[facility] [address] [place] [address] [phone] Denisa Lemus MD 230 [place] [address] 03/07/2025 2:00 PM EDT Office Visit [facility] [address] [place], [place] [phone] Rosanne Locke CNM [address] [place], [place] [phone] documented as of this encounter Visit Diagnoses Not on filedocumented in this encounter Care Teams Barber Apprentice Relationship Specialty Start Date End Date Name, MD Rehan [address] [place] [address] [phone] PCP - General Family Medicine 09/24/19 09/28/23 Tasia Queen Health Navigator Financial Counseling and Assistance Services 10/30/24 documented as of this encounter
--- OUTSIDE RECORDS SUMMARY | 2024-12-13 17:30 | XMS_ITS | Encounter Summary ---
Author Organization [employer] Address 75 [facility] 7t [place] [address] Care Team Providers Care Sinker Winder Name Role Phone Name, Rehan ABEL Primary Care Provider [phone] Tasia Queen Unavailable Unavailable Encounter Details Date Type Department Care Team (Latest Contact Info) Description 08/11/2021 Abstract [facility] Dental, Provider, DDS Social [...] 3:00 PM EDT Clinical Support [facility] MEDICINE [address] [place] [phone] Alyx Vasquez, RN 230 [place] [address] 02/14/2025 3:00 PM EDT Office Visit [facility] Dental 70 [place] [address] Inez Sue LLD 9 [place] [address] 03/05/2025 9:15 AM EDT Office Visit [facility] MEDICINE [address] [place] [address] [phone] Denisa Lemus MD 230 [place] [address] 03/07/2025 2:00 PM EDT Office Visit [facility] MEDICINE [address] [place], [place] [phone] Rosanne Locke CNM 230 [place], [place] [phone] documented as of this encounter Visit Diagnoses Not on filedocumented in this encounter Care Teams Sinker Winder Relationship Specialty Start Date End Date Name, MD Rehan [address] [place] [address] [phone] PCP - General Family Medicine 09/24/19 09/28/23 Tasia Queen Health Navigator Financial Counseling and Assistance Services 10/30/24 documented as of this encounter
[2024-12-15 17:03] LABS: HIV RNA PCR Qn Copies NOT DETECTED copies/mL (NOT DETECTED); HIV RNA PCR Qn Log Copies NOT DETECTED (NOT DETECTED)
== END 2024-12-13 15:07 | disposition home or self-care (01) ==
LOC: HO.HHCL 15:06
PROVIDERS: Visit Provider Advanced Practice Midwife
DX: Z79.899 Other long term (current) drug therapy (principal)
CPT/HCPCS: 36415; 80076; 87536

== ENCOUNTER 2025-01-10 15:10 | Outpatient (REF) | payer MEDICAID, OTHER, SELFPAY ==
--- OUTSIDE RECORDS SUMMARY | 2025-01-10 17:56 | XMS_ITS | Encounter Summary ---
Author Organization [employer] Address [address] [facility] [address] 7t [place] [address] Care Team Providers Care Rug Receiving Clerk Name Role Phone Tasia Queen Unavailable Unavailable Encounter Details Date Type Department Care Team (Latest Contact Info) Description 01/10/2025 Travel Social History Tobacco Use Types Packs/Day [...] the past 12 months, has t he [employer], gas, oil or water [employer] threatened to shut off services in your [...] Care Team (Late st Contact Info) Description 02/14/2025 3:00 PM EDT Office Visit Librado [facility] Dental 70 [place] [address] Inez Sue LLD 9 [place] [address] 03/05/2025 9:15 AM EDT Office Visit [facility] MEDICINE [address] [place] [address] Denisa Lemus MD [address] [place] [address] [phone] 03/07/2025 2:00 PM EDT Office Visit [facility] MEDICINE [address] [place] [phone] Rosanne Locke CNM 230 [place], [place] [phone] 03/11/2025 3:00 PM EDT Clinical Support [facility] MEDICINE [address] [place] [address] Alyx Vasquez RN 230 [place] [address] documented as of this encounter Visit Diagnoses Not on filedocumented in this encounter Care Teams Rug Receiving Clerk Relationship Specialty Start Date End Date Tasia Queen Health Navigator Financial Counseling and Assistance Services 10/30/24 documented as of this encounter
--- OUTSIDE RECORDS SUMMARY | 2025-01-10 17:56 | XMS_ITS | Encounter Summary ---
Author Organization [employer] Address 75 [facility] 7t [place] [address] Care Team Providers Care Bindery Worker Name Role Phone Name, Rehan ABEL Primary Care Provider Tasia Queen Unavailable Unavailable Encounter Details Date [...] 02/14/2025 3:00 PM EDT Office Visit [facility] Dental 70 [place] [address] Inez Sue LLD 9 [place] [address] 03/05/2025 9:15 AM EDT Office Visit [facility] MEDICINE [address] [place] [address] Denisa Lemus MD 230 [place] [address] 03/07/2025 2:00 PM EDT Office Visit [address] [address] Rosanne Locke CNM 230 [place] [address] 03/11/2025 3:00 PM EDT Clinical Support [facility] MEDICINE [address] [place] [address] Alyx Vasquez, RN 230 [place] [address] documented as of this encounter Visit Diagnoses Not on filedocumented in this encounter Care Teams Bindery Worker Relationship Specialty Start Date End Date Name, MD Rehan [address] [place] [address] PCP - General Family Medicine 09/24/19 09/28/23 Tasia Queen Health Navigator Financial Counseling and Assistance Services 10/30/24 documented as of this encounter
--- OUTSIDE RECORDS SUMMARY | 2025-01-10 17:56 | XMS_ITS | Clinical Summary ---
Author Organization [employer] Address 75 [facility] 7t [place] [address] Care Team Providers Care Manager Of Organizational Development Name Role Phone Tasia Queen Unavailable Unavailable Allergies No known active allergies Medications Hospital, Clinic, or Other Facility Administered Medication Ordered Dose Route Frequency Start Date End Date Status Cabotegravir ER Suspension Extended Release 600 mgIndications:On pre-exposure prophylaxis for HIV 600 mg IM Once 12/13/2024 12/13/2024 Ended Cabotegravir ER Suspension Extended Release 600 mgIndications:On pre-exposure prophylaxis for HIV 600 mg IM Once 01/10/2025 01/10/2025 Ended Active Problems Problem Noted Date Diagnosed Date Skin rash 06/14/2024 Assessment & Plan (06/14/2024 7:44 PM EDT): Rash in groins appears intertrigo from sweating Urinediptisk neg -advised to keep skin dry and to change frequently underwear -clotrimazole /topical steroids BID x 3 to 4 weeks -cbc,chem , hb1AC , STI test -will call pt w results -alarm signs and symptoms -added to [facility] New Patient wait list as of 06/04/24 from documentation Lumbago with sciatica, left side 08/17/2022 Overweight 08/17/2022 Seasonal allergies 08/17/2022 Encounters Date Type Department Care Team Description 01/10/2025 3:00 PM EDT Clinical Support [facility] MEDICINE [address] [place] [address] Alyx Vasquez RN On pre-exposure prophylaxis for HIV (Primary Dx) 01/10/2025 Travel 01/05/2025 Travel 12/13/2024 3:00 PM EDT Clinical Support [facility] MEDICINE [address] [place] [address] Alyx Vasquez RN On pre-exposure prophylaxis for HIV 12/13/2024 Travel 12/12/2024 Travel 12/04/2024 11:00 AM EDT Office Visit [facility] MEDICINE [address] [place] [address] Rosanne Locke CNM Encounter for pre-exposure prophylaxis for HIV (Primary Dx) 12/04/2024 Travel 12/02/2024 Travel 11/29/2024 Orders Only [facility] MEDICINE 230 [place] [address] Carolina Yanes RN 11/16/2024 Travel 10/30/2024 Patient Outreach [facility] Case Management [address] [place] [address] Tasia Queen Insurance Intervention (Updates) 10/30/2024 Patient Outreach [facility] Deshawn Wright [facility] Case Management 70 [place] [address] Henrry Guallpa [facility] Medical Appt from Last 3 Months Immunizations [...] 3:00 PM EDT Office Visit [facility] Dental 70 [place] [address] Inez Sue LLD 9 [place] [address] 03/05/2025 9:15 AM EDT Office Visit [address] [address] Denisa Lemus MD 230 [place] [address] 03/07/2025 2:00 PM EDT Office Visit [address] [address] Rosanne Locke CNM 230 [place] [address] 03/11/2025 3:00 PM EDT Clinical Support [address] [address] Alyx Vasquez, DERRICK [address] [place] [address] Health Maintenance Due Date Last Done Comments Depression Screening 1989 Lipid Panel 1989 SDOH Screening 1989 IPV Vaccines (2 of 3 - Adult catch-up series) 05/15/2018 04/17/2018 COVID-19 Vaccine ( season) 2024 10/26/2021, 03/08/2021, 02/08/2021 Influenza Vaccine (#1) 2024 2, 07/19/2022, 10/13/2021, Additional history exists Dental Oral [...] Hepatitis B Vaccines Completed 10/13/2021, 08/13/2019, 07/16/2019 Hepatitis C Screening Completed 11/22/2024, 024 HIV Screening Completed 12/13/2024, 10/28, 06/14/2024 HIB Vaccines Aged Out No longer eligi [...] Diagnosis Comments POCT RAPID HIV SCREENING Routine 01/10/2025 3:27 PM EDT On pre-exposure prophylaxis for HIV POCT RAPID HIV SCREENING Routine 12/13/2024 3:38 PM EDT On pre-exposure prophylaxis for HIV HIV 1 RNA, QUANTITATIVE REAL TIME PCR Routine 12/13/2024 3:11 PM EDT HEPATIC FUNCTION PANEL Routine 12/13/2024 3:11 PM [...] Maintenance Results * POCT RAPID HIV SCREENING (01/10/2025 3:27 PM EDT) Only the most recent of2 resultswithin the time period is included. Blood 01/10/2025 3:27 PM EDT Narrative Alyx Vasquez RN - 01/10/2025 3:27 PM EDT Negative Neda Pacheco MD POINT OF CARE TEST ENTER/FERMIN T ORDERABLES Final Result * HIV-1 RNA, Quantitative, Real-Time PCR (12/13/2024 3:11 PM EDT) HIV RNA PCR Qn Copies NOT DETECTED NOT DETECTED copies/mL [facility] HIV RNA PCR Qn Log Copies NOT DETECTED NOT DETECTED [facility] Comment:Result Units: Log co pies/mLThis test was performed using Real-Time Polymerase ChainReaction.Reportable Range: 20 copies/mL to 10,000,000 copies/mL(1.30 log copies/mL to 7.00 log copies/mL).THIS TEST WAS PERFORMED AT:[employer] [place] [phone] EVANGELISTA MD 12/13/2024 3:11 PM EDT 12/13/2024 4:20 PM EDT Rosanne Locke [facility] LAB BLOOD ORDERABLES Rebecca l Result Performing Organization Address [facility] de Phone Number [facility] [address] [place] [phone] * Hepatic Function Panel (12/13/2024 3:11 PM EDT) Pathologist [facility] Bilirubin, Total 0.5 0.0 - 1.0 mg/dL [facility] Bilirubin, Direct 0.2 0.0 - 0.5 mg/dL [facility] Aspartate Amino Transferase 25 5 - 37 U/L [facility] Alanine Aminotransferase 38 0 - 40 U/L [facility] Total Protein 7.2 6.5 - 8.0 g/dL [facility] Albumin Level 4.4 3.5 - 5.0 g/dL [facility] Alkaline Phosphatase 71 39 - 117 U/L [facility] 12/13/2024 3:11 PM EDT 12/13/2024 4:20 PM EDT Rosanne Locke [facility] BLOOD ORDERABLES Rebecca l Result Performing Organization Address [facility] Co de Phone Number [facility] [address] [place] [phone] * Chlamydia/Gonorrhea Throat Swab (SC DP) (11/22/2024) Chlamydia Throat Swab Negative Gonorrhea Throat Swab Negative Swab 11/22/2024 Result [facility] Provider LAB MICROBIOLOGY - GENERA L ORDERABLES Final Result * Chlamydia/Gonorrhea, Urine (SC DP) (11/22/2024) Chlamydia, Urine Negative Negative, Indeterminate, None Detected, Invalid, Specimen unsatisfactory for evaluation, Weakly Positive Gonorrhea, Urine Negative Negative, Indeterminate, None Detected, Invalid, Specimen unsatisfactory for evaluation, Weakly Positive Urine 11/22/2024 Result [facility] Provider MD LAB URINE ORDERABLES Rebecca l Result * Syphilis Antibodies (DP) (11/22/2024) Syphilis Abs Nonreactive Borderline, Nonreactive, Weakly Reactive, Inconclusive, Specimen unsatisfactory for evaluation Blood Venous blood specimen / Unknown 11/22/2024 Result [facility] Provider MD LAB BLOOD ORDERABLES Rebecca l Result * Hepatitis C Antibody (SC DP) (11/22/2024) Hepatitis C Ab Nonreactive Blood 11/22/2024 Result [facility] Provider MD LAB BLOOD ORDERABLES Rebecca l Result * HIV Ab/Ag (SC DP) (11/22/2024) HIV Ag/Ab Nonreactive Blood 11/22/2024 Result [facility] Provider MD LAB BLOOD ORDERABLES Rebecca l Result from Last 3 Months [facility] [employer] [facility] FULL [place] ADULT DENTAL - HSN FULL (MEDICAID) Care Teams Manager Of Organizational Development Relationship Specialty Start Date End Date Tasia Queen Health Navigator Financial Counseling and Assistance Services 10/30/24
--- OUTSIDE RECORDS SUMMARY | 2025-01-10 17:56 | XMS_ITS | Encounter Summary ---
Author Organization [employer] Address [address] [facility] [address] 7t [place] [address] Care Team Providers Care Egg Pasteurizer Name Role Phone Tasia Queen Unavailable Unavailable Encounter Details Date Type Department Care Team (Latest Contact Info) Description 01/05/2025 Travel Social History Tobacco Use Types Packs/Day [...] the past 12 months, has t he [employer], gas, oil or water [employer] threatened to shut off services in your [...] 3:00 PM EDT Office Visit [facility]ado [facility] Dental 70 [place] [address] Inez Sue LLD 9 [place] [address] 03/05/2025 9:15 AM EDT Office Visit [facility] MEDICINE [address] [place] [address] Denisa Lemus MD [address] [place] [address] [phone] 03/07/2025 2:00 PM EDT Office Visit [facility] MEDICINE [address] [place] [address] Rosanne Locke CNM 230 [place], [place] [phone] 03/11/2025 3:00 PM EDT Clinical Support [facility] MEDICINE 230 [place] [address] Alyx Vasquez RN [address] [place] [address] documented as of this encounter Visit Diagnoses Not on filedocumented in this encounter Care Teams Egg Pasteurizer Relationship Specialty Start Date End Date Tasia Queen Health Navigator Financial Counseling and Assistance Services 10/30/24 documented as of this encounter
--- OUTSIDE RECORDS SUMMARY | 2025-01-10 17:56 | XMS_ITS | Encounter Summary ---
Author Organization [employer] Address 75 [facility] 7t [place] [address] Care Team Providers Care Manager Policy Name Role Phone Name, Rehan ABEL Primary Care Provider [phone] Tasia Queen Unavailable Unavailable Encounter Details Date [...] 02/14/2025 3:00 PM EDT Office Visit [facility] Dental 70 [place] [address] Inez Sue LLD 9 [place] [address] 03/05/2025 9:15 AM EDT Office Visit [facility] MEDICINE [address] [place] [address] [phone] Denisa Lemus MD [address] [place] [phone] 03/07/2025 2:00 PM EDT Office Visit [address] [address] Rosanne Locke CNM 230 [place] [address] 03/11/2025 3:00 PM EDT Clinical Support [address] [address] Alyx Vasquez, RN 230 [place] [address] documented as of this encounter Visit Diagnoses Not on filedocumented in this encounter Care Teams Manager Policy Relationship Specialty Start Date End Date Name, MD Rehan [address] [place] [phone] PCP - General Family Medicine 09/24/19 09/28/23 Tasia Queen Health Navigator Financial Counseling and Assistance Services 10/30/24 documented as of this encounter
--- OUTSIDE RECORDS SUMMARY | 2025-01-10 17:56 | XMS_ITS | Encounter Summary ---
Author Organization [employer] Address 75 [facility] 7t [place] [address] Care Team Providers Care Horse Stud Worker Name Role Phone Tasia Queen Unavailable Unavailable Encounter Details Date Type Department Care Team (Latest Contact Info) Description 01/10/2025 3:00 PM EDT Clinical Support [facility] MEDICINE 230 [place] [address] Alyx Vasquez RN [address] [place] [address] On pre-exposure prophylaxis for HIV (Primary Dx) Social [...] Progress Notes * Alyx Vasquez RN - 01/10/2025 3:00 PM EDT Pt here for second injection of APRETUDE (600-mg cabotegravir). [Pt did [...] 2 mos thereafter w/ 7d ronnie period): 03/11/25 @3pm documented in this encounter Plan of Treatment Upcoming Encounters Date Type Department Care Team (Late st Contact Info) Description 02/14/2025 3:00 PM EDT Office Visit [facility] Dental 70 [place] [address] Inez Sue LLD [address] [place] [address] 03/05/2025 9:15 AM EDT Office Visit [address] [address] Denisa Lemus MD [address] [place] [address] 03/07/2025 2:00 PM EDT Office Visit [address] [address] Rosanne Locke CNM [address] [place] [address] 03/11/2025 3:00 PM EDT Clinical Support [address] [address] Alyx Vasquez, DERRICK [address] [place] [phone] Scheduled Orders Name Type Priority Associated Diagnoses Orde r Schedule HIV-1 RNA, Quantitative, Real-Time PCR Lab Routine On pre-exposure prophylaxis for HIV Expected: 01/10/2025 (Approximate), Expires: 01/10/2026 documented as of this encounter Procedures Procedure Name Priority Date/Time Associated Diagnosis Comments POCT RAPID HIV SCREENING Routine 01/10/2025 3:27 PM EDT On pre-exposure prophylaxis for HIV documented in this encounter Results * POCT RAPID HIV SCREENING (01/10/2025 3:27 PM EDT) Blood 01/10/2025 3:27 PM EDT Narrative Alyx Vasquez, DERRICK - 01/10/2025 3:27 PM EDT Negative Neda Pacheco MD POINT OF CARE TEST ENTER/FERMIN T ORDERABLES Final Result documented in this encounter Visit Diagnoses Diagnosis On pre-exposure prophylaxis for HIV- Primary documented in this encounter Administered Medications Inactive Administered Medications - up to 3 most recent administrations Medication Order MAR Action Action Date Dose Rate Site Cabotegravir ER Suspension Extended Release 600 mg 600 mg, Intramuscular, Once, On Lizeth 01/10/25 at 1530, For 1 dose, Ventrogluteal.Indication s:On pre-exposure prophylaxis for HIV Given 01/10/2025 3:30 PM EDT 600 mg Left Upper Buttock documented in this encounter Care Teams Horse Stud Worker Relationship Specialty Start Date End Date Tasia Queen Health Navigator Financial Counseling and Assistance Services 10/30/24 documented as of this encounter
--- OUTSIDE RECORDS SUMMARY | 2025-01-10 17:56 | XMS_ITS | Encounter Summary ---
Author Organization [employer] Address [address] [facility] 7t [place] [address] Care Team Providers Care Certified Surgical Technician Name Role Phone Name, Rehan ABEL Primary Care Provider [phone] Tasia Queen Unavailable Unavailable Encounter Details Date [...] PM EDT Office Visit [facility] Dental 70 [place] [address] Inez Sue LLD 9 [place] [address] 03/05/2025 9:15 AM EDT Office Visit [facility] MEDICINE [address] [place] [address] Denisa eLmus MD 230 [place] [address] 03/07/2025 2:00 PM EDT Office Visit [address] [address] Rosanne Locke CNM 230 [place] [address] 03/11/2025 3:00 PM EDT Clinical Support [facility] MEDICINE [address] [place] [address] Alyx Vasquez, RN 230 [place] [address] documented as of this encounter Visit Diagnoses Not on filedocumented in this encounter Care Teams Certified Surgical Technician Relationship Specialty Start Date End Date Name, MD Rehan [address] [place] [address] PCP - General Family Medicine 09/24/19 09/28/23 Tasia Queen Health Navigator Financial Counseling and Assistance Services 10/30/24 documented as of this encounter
--- OUTSIDE RECORDS SUMMARY | 2025-01-10 17:56 | XMS_ITS | Encounter Summary ---
Author Organization [employer] Address 75 [facility] 7t [place] [address] Care Team Providers Care Technical Artist Name Role Phone Name, Rehan ABEL Primary [...] 02/14/2025 3:00 PM EDT Office Visit L[facility] Dental 70 [place] [address] Inez Sue LLD 9 [place] [address] 03/05/2025 9:15 AM EDT Office Visit [facility] MEDICINE [address] [place] [phone] Denisa Lemus MD 230 [place] [address] 03/07/2025 2:00 PM EDT Office Visit [address] [address] Rosanne Locke CNM 230 [place] [address] 03/11/2025 3:00 PM EDT Clinical Support [facility] MEDICINE [address] [place] [address] Alyx Vasquez, RN 230 [place] [address] documented as of this encounter Visit Diagnoses Not on filedocumented in this encounter Care Teams Technical Artist Relationship Specialty Start Date End Date Name, MD Rehan [address] [place] [address] PCP - General Family Medicine 09/24/19 09/28/23 Tasia Queen Health Navigator Financial Counseling and Assistance Services 10/30/24 documented as of this encounter
--- OUTSIDE RECORDS SUMMARY | 2025-01-10 17:56 | XMS_ITS | Encounter Summary ---
Author Organization [employer] Address 75 [facility] 7t [place] [address] Care Team Providers Care Factory Superintendent Name Role Phone Name, Rehan ABEL Primary Care Provider [phone] Tasia Queen Unavailable Unavailable Encounter Details Date [...] 02/14/2025 3:00 PM EDT Office Visit [facility] Dental 70 [place] [address] Inez Sue LLD 9 [place] [address] 03/05/2025 9:15 AM EDT Office Visit [facility] MEDICINE [address] [place] [address] [phone] Denisa Lemus MD [address] [place] [address] 03/07/2025 2:00 PM EDT Office Visit [address] [address] Rosanne Locke CNM 230 [place] [address] 03/11/2025 3:00 PM EDT Clinical Support [address] [address] Alyx Vasquez, RN 230 [place] [address] documented as of this encounter Visit Diagnoses Not on filedocumented in this encounter Care Teams Factory Superintendent Relationship Specialty Start Date End Date Name, MD Rehan [address] [place] [phone] PCP - General Family Medicine 09/24/19 09/28/23 Tasia Queen Health Navigator Financial Counseling and Assistance Services 10/30/24 documented as of this encounter
--- OUTSIDE RECORDS SUMMARY | 2025-01-10 17:56 | XMS_ITS | Encounter Summary ---
Author Organization [employer] Address 75 [facility] 7t [place] [address] Care Team Providers Care Modeling Teacher Name Role Phone Name, Rehan ABEL Primary Care Provider [phone] Tasia Queen Unavailable Unavailable Encounter Details Date [...] 02/14/2025 3:00 PM EDT Office Visit [facility] Dental 70 [place] [address] Inez Sue LLD 9 [place] [address] 03/05/2025 9:15 AM EDT Office Visit [facility] MEDICINE [address] [place] [address] [phone] Denisa Lemus MD [address] [place] [address] 03/07/2025 2:00 PM EDT Office Visit [address] [place] [address] [address] Rosanne Locke CNM 230 [place] [address] 03/11/2025 3:00 PM EDT Clinical Support [address] [place] [address] [address] Alyx Vasquez, RN 230 [place] [address] documented as of this encounter Visit Diagnoses Not on filedocumented in this encounter Care Teams Modeling Teacher Relationship Specialty Start Date End Date Name, MD Rehan [address] [place] [phone] PCP - General Family Medicine 09/24/19 09/28/23 Tasia Queen Health Navigator Financial Counseling and Assistance Services 10/30/24 documented as of this encounter
--- OUTSIDE RECORDS SUMMARY | 2025-01-10 17:56 | XMS_ITS | Encounter Summary ---
Author Organization [employer] Address 75 [facility] 7t [place] [address] Care Team Providers Care Track Laying Machine Operator Name Role Phone Name, Rehan ABEL Primary Care Provider [phone] Tasia Queen Unavailable Unavailable Encounter Details Date [...] 02/14/2025 3:00 PM EDT Office Visit [facility] Dental 70 [place] [address] Inez Sue LLD 9 [place] [address] 03/05/2025 9:15 AM EDT Office Visit [facility] MEDICINE [address] [place] [phone] Denisa Lemus MD 230 [place] [address] 03/07/2025 2:00 PM EDT Office Visit [address] [address] Rosanne Locke CNM 230 [place] [address] 03/11/2025 3:00 PM EDT Clinical Support [facility] MEDICINE [address] [place] [address] Alyx Vasquez, RN 230 [place] [address] documented as of this encounter Visit Diagnoses Not on filedocumented in this encounter Care Teams Track Laying Machine Operator Relationship Specialty Start Date End Date Name, MD Rehan [address] [place] [address] PCP - General Family Medicine 09/24/19 09/28/23 Tasia Queen Health Navigator Financial Counseling and Assistance Services 10/30/24 documented as of this encounter
[2025-01-12 17:08] LABS: HIV RNA PCR Qn Copies NOT DETECTED copies/mL (NOT DETECTED); HIV RNA PCR Qn Log Copies NOT DETECTED (NOT DETECTED)
== END 2025-01-10 15:11 | disposition home or self-care (01) ==
LOC: HO.HHCL 15:10
PROVIDERS: Visit Provider Family Medicine
DX: Z79.899 Other long term (current) drug therapy (principal)
CPT/HCPCS: 36415; 87536

== ENCOUNTER 2025-03-07 13:51 | Outpatient (REF) | payer MEDICAID, OTHER, SELFPAY ==
[2025-03-07 16:15] LABS: MANUAL DIFF FLAG NO
[2025-03-07 16:17] LABS: Basophils Absolute Auto 0.1 X10*3/uL (0.0-0.2); Basophils Percent Auto 0.8 % (0-2); Eosinophils Absolute Auto 0.1 X10*3/uL (0.0-0.4); Eosinophils Percent Auto 0.8 % (0-4); Hematocrit 43.3 % (42.0-52.0); Hemoglobin 14.5 g/dl (14.0-18.0); Imm Gran Abs Auto 0.02 X10*3/uL (0.00-0.03); Imm Gran Pct Auto 0.3 % (0.0-0.4); Lymphocytes Absolute Auto 2.4 X10*3/uL (1.2-4.9); Mean Corpuscular HGB Conc 33.5 g/dl (31.0-36.0); Mean Corpuscular Hemoglobin 31.7 pg (27.0-33.0); Mean Corpuscular Volume 94.5 fL (80.0-98.0); Mean Platelet Volume 10.8 fL (9.4-12.4); Monocytes Absolute Auto 0.5 X10*3/uL (0.1-1.2); Monocytes Percent Auto 6.4 % (2-11); Neutrophils Absolute Auto 4.5 x10*3/uL (2.0-8.3); Neutrophils Percent Auto 59.7 % (45-73); Platelet Count 209 X10*3/uL (160-400); Red Blood Count 4.58 X10*6/uL (4.60-5.80); Red Cell Distribution Width 12.3 % (11.0-16.0); White Blood Count 7.5 X10*3/uL (4.8-10.8)
[2025-03-07 16:44] LABS: Alanine Aminotransferase 49 U/L (0-40); Alkaline Phosphatase 76 U/L (39-117); Anion Gap 10 (12-20); Aspartate Amino Transferase 36 U/L (5-37); Bilirubin Total 0.6 mg/dL (0.0-1.0); Blood Urea Nitrogen 14 mg/dL (9-16); Calcium 9.5 mg/dL (8.4-10.2); Carbon Dioxide 30 mmol/L (22-29); Chloride 103 mmol/L (96-108); Cholesterol 179 mg/dL (<200); Estimated Glomerular Filt Rate > 60; Glucose Random 83 mg/dL (60-115); HDL Cholesterol 58 mg/dL (>40); LDL Cholesterol Calculated 103 mg/dL (<100); Potassium 4.2 mmol/L (3.3-5.1); Sodium 139 mmol/L (135-145); Total Protein 7.2 g/dL (6.5-8.0); Triglycerides 90 mg/dL (<150)
[2025-03-07 17:00] LABS: TSH reflex Free T4 0.93 uIU/mL (0.32-4.0)
[2025-03-07 17:40] LABS: CT PCR NOT DETECTED (Not Detect.); NG PCR NOT DETECTED (Not Detect.)
[2025-03-07 18:54] LABS: Reflex LDLD? No
[2025-03-08 08:27] LABS: ~Hepatitis C Antibody Nonreactive (Nonreactive)
[2025-03-08 15:18] LABS: HIV RNA PCR Qn Copies NOT DETECTED copies/mL (NOT DETECTED); HIV RNA PCR Qn Log Copies NOT DETECTED (NOT DETECTED)
[2025-03-11 15:04] LABS: RPR Rapid Plasma Reagin NON-REACTIVE (NON-REACTIVE)
== END 2025-03-07 13:52 | disposition home or self-care (01) ==
LOC: HO.HHCL 13:51
PROVIDERS: Internal Medicine; Visit Provider Advanced Practice Midwife
DX: E66.3 Overweight (principal); Z79.899 Other long term (current) drug therapy; L30.4 Erythema intertrigo
CPT/HCPCS: 36415; 80053; 80061; 84443; 85025; 86592; 86803; 87491; 87536; 87591

== ENCOUNTER 2025-05-03 15:08 | Outpatient (REF) | payer MEDICAID, OTHER, SELFPAY ==
--- OUTSIDE RECORDS SUMMARY | 2025-05-03 15:10 | XMS_ITS | Encounter Summary ---
Author Organization [employer] [facility] Address [address] [place] [address] 7t [place] [address] Care Team Providers Care Turpentine Farmer Name Role Phone Name, Rehan ABEL Primary Care Provider [phone] Tasia Queen Ana Maria MD Primary Care Provider + Encounter Details Date Type Department Care Team [...] Care Team (Late st Contact Info) Description 06/28/2025 3:00 PM EDT Clinical Support [facility] MEDICINE [address] [place] [address] Alyx Vasquez, RN [address] [place] [address] 08/12/2025 3:00 PM EST Office Visit [facility] [address] [place] [address] Rut Lloyd documented as of this encounter Visit Diagnoses Not on filedocumented in this encounter Care Teams Turpentine Farmer Relationship Specialty Start Date End Date Name, MD Rehan [address] [place] [address] PCP - General Family Medicine 09/24/19 09/28/23 Denisa Lemus MD [address] [place] [address] PCP - General Internal Medicine 03/05/25 Tasia Queen Health Navigator Financial Counseling and Assistance Services 10/30/24 documented as of this encounter
[2025-05-03 17:03] LABS: Alanine Aminotransferase 35 U/L (0-40); Albumin Level 4.8 g/dL (3.5-5.0); Alkaline Phosphatase 69 U/L (39-117); Anion Gap 11 (12-20); Aspartate Amino Transferase 35 U/L (5-37); Blood Urea Nitrogen 10 mg/dL (9-16); Calcium 9.3 mg/dL (8.4-10.2); Carbon Dioxide 28 mmol/L (22-29); Chloride 104 mmol/L (96-108); Estimated Glomerular Filt Rate > 60; Potassium 3.5 mmol/L (3.3-5.1); Sodium 139 mmol/L (135-145); Total Protein 7.0 g/dL (6.5-8.0)
[2025-05-04 17:08] LABS: HIV RNA PCR Qn Copies NOT DETECTED copies/mL (NOT DETECTED); HIV RNA PCR Qn Log Copies NOT DETECTED (NOT DETECTED)
[2025-05-06 08:16] LABS: ~HepC Num1 0.08 S/CO (0.00-0.79); ~Hepatitis C Antibody Nonreactive (Nonreactive)
== END 2025-05-03 15:09 | disposition home or self-care (01) ==
LOC: HO.HHCL 15:08
PROVIDERS: PCP Internal Medicine Geriatric Medicine; Visit Provider Internal Medicine
DX: Z79.899 Other long term (current) drug therapy (principal)
CPT/HCPCS: 36415; 80053; 86592; 86803; 87536

== ENCOUNTER 2025-06-28 14:56 | Outpatient (REF) | payer MEDICAID, OTHER, SELFPAY ==
--- OUTSIDE RECORDS SUMMARY | 2025-06-28 14:59 | XMS_ITS | Encounter Summary ---
Author Organization [employer] Address [address] [place] [address] 7t [place] [address] Care Team Providers Care Simplex Operator Name Role Phone Name, Rehan ABEL Primary Care Provider [phone] Tasia Queen Ana Maria MD Primary Care [...] Upcoming Encounters Date Type Department Care Team (Latest Contact Info) Description 06/28/2025 3:00 PM EDT Clinical Support [facility] MEDICINE [address] [place] [phone] Alyx Vasquez, RN [address] [place] [address] On pre-exposure prophylaxis for HIV (Primary Dx) 08/12/2025 3:00 PM EST Office Visit [facility] Dental [address] [place] [address] Rut Lloyd 08/28/2025 9:15 AM EST Office Visit [facility] MEDICINE [address] [place] [address] [phone] Denisa Lemus MD [address] [place] [address] [phone] 08/30/2025 3:00 PM EST Clinical Support [facility] MEDICINE [address] [place] [address] [phone] Carolina Yanes RN documented as of this encounter Visit Diagnoses Not on filedocumented in this encounter Care Teams Simplex Operator Relationship Specialty Start Date End Date Name, MD Rehan [address] [place] [address] [phone] PCP - General Family Medicine 09/24/19 09/28/23 Denisa Lemus MD [address] [place] [address] [phone] PCP - General Internal Medicine 03/05/25 Tasia Queen Health Navigator Financial Counseling and Assistance Services 10/30/24 documented as of this encounter
--- OUTSIDE RECORDS SUMMARY | 2025-06-28 14:59 | XMS_ITS | Encounter Summary ---
Author Organization [employer] Address [address] [facility] 7t [place] [address] Care Team Providers Care Supervisor Fish Hatchery Name Role Phone Tasia Queen Ana Maria MD Primary Care Provider + Encounter Details Date Type Department Care Team (Latest Contact Info) Description 06/28/2025 Travel Social History Tobacco Use Types Packs/Day Years Used Date Smoking Tobacco: Never Passive Smoke Exposure: Never Smokeless Tobacco: Never Alcohol Use Standard Drinks/Week Comments Not Currently 0 (1 standard drink = 0.6 oz [...] off services in your home? No 10/30/2024 Depression Answer Date Recorded Patient Health Questionnaire-2 Score 0 03/05/2025 Internet Access Answer Date Recorded Internet Access Q1 No 03/05/2025 Internet Access Q2 I do not want or need it 02/24 Sex and Gender Information Value Date Recorded [...] Description 06/28/2025 3:00 PM EDT Clinical Support [facility] MEDICINE [address] [place] [phone] Alyx Vasquez, DERRICK [address] [place] [phone] On pre-exposure prophylaxis for HIV (Primary Dx) 08/12/2025 3:00 PM EST Office Visit [facility] Dental [address] [place] [address] Rut Lloyd 08/28/2025 9:15 AM EST Office Visit [facility] MEDICINE [address] [place] [phone] Denisa Lemus MD [address] [place] [phone] 08/30/2025 3:00 PM EST Clinical Support [facility] MEDICINE [address] [place], [place] [phone] Carolina Yanes RN documented as of this encounter Visit Diagnoses Not on filedocumented in this encounter Care Teams Supervisor Fish Hatchery Relationship Specialty Start Date End Date Denisa Lemus MD [address] [place] [address] PCP - General Internal Medicine 03/05/25 Tasia Queen Health Navigator Financial Counseling and Assistance Services 10/30/24 documented as of this encounter
--- OUTSIDE RECORDS SUMMARY | 2025-06-28 14:59 | XMS_ITS | Encounter Summary ---
Author Organization [employer] Address [address] [place] [address] 7t [place] [address] Care Team Providers Care Product Management Consultant Name Role Phone Name, Rehan ABEL Primary Care Provider [phone] Tasia Queen Ana Maria MD Primary Care [...] Description 06/28/2025 3:00 PM EDT Clinical Support [facility] MEDICINE [address] [place] [phone] Alyx Vasquez, RN [address] [place] [address] On pre-exposure prophylaxis for HIV (Primary Dx) 08/12/2025 3:00 PM EST Office Visit [facility] Dental [address] [place] [address] Rut Lloyd 08/28/2025 9:15 AM EST Office Visit [facility] MEDICINE [address] [place] [address] [phone] Denisa Lemus MD [address] [place] [address] [phone] 08/30/2025 3:00 PM EST Clinical Support [facility] MEDICINE [address] [place] [address] [phone] Carolina Yanes RN documented as of this encounter Visit Diagnoses Not on filedocumented in this encounter Care Teams Product Management Consultant Relationship Specialty Start Date End Date Name, MD Rehan [address] [place] [address] [phone] PCP - General Family Medicine 09/24/19 09/28/23 Denisa Lemus MD [address] [place] [address] [phone] PCP - General Internal Medicine 03/05/25 Tasia Queen Health Navigator Financial Counseling and Assistance Services 10/30/24 documented as of this encounter
--- OUTSIDE RECORDS SUMMARY | 2025-06-28 14:59 | XMS_ITS | Clinical Summary ---
Author Organization [employer] Address [address] [facility] 7t [place] [address] Care Team Providers Care Supervisor Blood Name Role Phone Tasia Queen Ana Maria MD Primary Care Provider + Allergies No known active allergies Medications doxycycline (Vibra-Tabs) 100 MG tablet Take two tablets together as directed (up to 3 days after exposure) 30 tablet 2 03/07/20 25 Active Apretude 600 MG/3ML Suspension Extended Release INJECT INTRAMUSCULARLY DIRECTED. BRING TO OFFICE FOR ADMINISTRATION. 3 mL 1 05/15/20 25 Active Active Problems Problem Noted Date Diagnosed Date Eczema intertrigo 03/05/2025 Assessment & Plan (03/05/2025 9:41 AM EDT): On axilla. Use Lotrisone, he prefers lotion, on affected areas. Advised to use Desitin cream over Lotrisone Reconsult as needed Screening examination for STI 03/05/2025 Assessment & Plan (03/05/2025 9:39 AM EDT): We discussed extensively about STI prevention, use of condoms and PrEP both apretude, Truvada and Descovy for HIV and also doxycycline for chlamydia. He will hold off on chlamydia tablets for now but he is aware that he could call as needed for that or come to the walk-in clinic. We discussed about decreased risk of STI, safe sex and avoid recreational substance of alcohol. He will follow-up with CRS team to continue monthly application of apretude which he is tolerating well, get LFTs every 6 months or earlier as required by CRS team. Skin rash 06/14/2024 Assessment & Plan (06/14/2024 7:44 PM EDT): Rash in groins appears intertrigo from sweating Urinediptisk neg -advised to keep skin dry and to change frequently underwear -clotrimazole /topical steroids BID x 3 to 4 weeks -cbc,chem , hb1AC , STI test -will call pt w results -alarm signs and symptoms -added to [facility] New Patient wait list as of 06/04/24 from documentation Lumbago with sciatica, left side 08/17/2022 Overweight 08/17/2022 Assessment & Plan (03/05/2025 9:39 AM EDT): Discussed re weight reduction options including exercise, life style modifications, diet. Recommended to decrease soda and sugary beverage consumption, increase protein intake with meals (at least 1 portion of protein with each meal) to assist with satiety, increase dietary fiber Recommended at least 150 min/week of moderate intensity exercise. Order labs and follow-up with me in 3 months Seasonal allergies 08/17/2022 Encounters Date Type Department Care Team Description 06/28/2025 3:00 PM EDT Clinical Support [facility] MEDICINE [address] [place] [address] Alyx Vasquez, RN On pre-exposure prophylaxis for HIV (Primary Dx) 06/28/2025 Travel 06/21/2025 Travel 05/15/2025 Refill [facility] MEDICINE [address] [place] [address] Rosanne Locke CNM 05/03/2025 3:00 PM EDT Clinical Support [facility] [address] [facility] [place] [address] Alyx Vasquez, RN On pre-exposure prophylaxis for HIV (Primary Dx) 05/03/2025 Orders Only [facility] [place] [address] Denisa Lemus MD 05/03/2025 Travel 04/26/2025 Travel from Last 3 Months Immunizations Immunization Administration Dates Next Due Hep B, adult 10/13/2021,08/13/2019,07/16/2019 IPV 04/17/2018 Influenza, IIV3, injectable 10/13/2021, 9 MMR 04/17/2018 Tdap 04/17/2018 Social History Tobacco Use Types Packs/Day Years Used Date Smoking Tobacco: Never Passive Smoke Exposure: Never Smokeless Tobacco: Never Tobacco Cessation:Counseling Given: Not Answered Alcohol Use Standard Drinks/Week Comments Not Currently [...] Sign Reading Time Taken Comments Blood Pressure 120/80 03/07/2025 1:34 PM EDT Pulse 65 03/07/2025 1:34 PM EDT Temperature 36.6 C (97.8 F) 03/07/2025 1:34 PM EDT Respiratory Rate 20 03/07/2025 1:34 PM EDT Oxygen Saturation 99% 12/04/2024 10:53 AM EDT Inhaled Oxygen Concentration - - Weight 84.8 kg (187 lb) 03/07/2025 1:34 PM EDT Height 175.3 cm (5' 9 ) 03/07/2025 1:34 PM EDT Body Mass Index 27.62 03/07/2025 1:34 PM EDT Plan of Treatment Upcoming Encounters Date Type Department Care Team (Latest Contact Info) Description 06/28/2025 3:00 PM EDT Clinical Support [facility] MEDICINE [address] [place] [phone] Alyx Vasquez, RN [address] [place] [address] On pre-exposure prophylaxis for HIV (Primary Dx) 08/12/2025 3:00 PM EST Office Visit [facility] Dental [address] [place] [address] Rut Lloyd 08/28/2025 9:15 AM EST Office Visit [facility] MEDICINE [address] [place] [phone] Denisa Lemus MD [address] [place] [address] [place] [phone] 08/30/2025 3:00 PM EST Clinical Support [facility] MEDICINE [facility] [place] [address] Carolina Yanes, RN Health Maintenance Due Date Last Done Comments HPV Vaccines (1 - 3-dose series) 2004 IPV Vaccines (2 of 3 - Adult catch-up series) 05/15/2018 04/17/2018 Dental X-Ray: Bitewings 05/11/2025 05/10/20 24, 03/09/2023, 09/06/2022, Additional history exists COVID-19 Vaccine ( season) 2025 10/26/2021, 03/08/2021, 02/08/2021 Influenza Vaccine (#1) 2025 , 07/19/2022, 10/13/2021, Additional history exists Dental Oral Exam 08/18/2025 02/14/2025, , 05/10/2024, Additional history exists Dental Prophylaxis 08/18/2025 02/14/2025, 1 10/21/2023, 05/10/2024, Additional history exists Alcohol/Substance Use Screening 10/30/2025 10/30/2024 Depression Screening 03/05/2026 03/05/2025, 03/05/20 25 Disability Screening 03/05/2026 03/05/2025 SDOH Screening 03/05/2026 03/05/2025 Family Planning (PISQ) 03/07/2026 03/07/2025 Tobacco Screening 03/07/2026 03/07/2025 Dental X-Ray: Full Mouth 03/10/2026 023, 04/10/2018, 05/27/2016, Additional history exists DTaP/Tdap/Td Vaccines (2 - Td or Tdap) 04/17/2028 04/17/2018 Lipid Panel 03/07/2030 03/07/2025 Zoster Vaccines (1 of 2) 2039 RSV Patients and Patients Aged 60 years or older (1 - 1-dose 75+ series) 2064 Hepatitis B Vaccines Completed 10/13/2021, 08/13/2019, 07/16/2019 HIV Screening Completed 05/03/2025, 02/24, 01/10/2025, Additional history exists Hepatitis C Screening Completed 05/03/2025 , 03/07/2025, 11/22/2024, Additional history exists HIB Vaccines Aged Out No longer eligi ble based on patient's age to complete this topic Hepatitis A Vaccines Aged Out No long er eligible based on patient's age to complete this topic Meningococcal B Vaccine Aged Out No l onger eligible based on patient's age to complete this topic Meningococcal Vaccine Aged Out No rehan elvia eligible based on patient's age to complete this topic Pneumococcal Vaccine: Pediatrics (0 to 5 Years) and At-Risk Patients (6 to 49) Years Aged Out No longer eligible based on patient's age to complete this topic RSV under 20 months Aged Out No longe r eligible based on patient's age to complete this topic Rotavirus Vaccines Aged Out No longer eligible based on patient's age to complete this topic Procedures Procedure Name Priority Date/Time Associated Diagnosis Comments RPR (MONITOR) W/REFL TITER Routine 05/03/2025 3:12 PM EDT HEPATITIS C AB W/REFL TO HCV RNA, QN, PCR Routine 05/03/2025 3:12 PM EDT HIV 1 RNA, QUANTITATIVE REAL TIME PCR Routine 05/03/2025 3:12 PM EDT COMPREHENSIVE METABOLIC PANEL Routine 05/03/2025 3:12 PM EDT LIPID PANEL WITH REFLEX TO DIRECT LDL Routine 03/07/2025 1:54 PM EDT Overweight Full PROPHYLAXIS - ADULT Routine 02/14/2025 3:00 PM EDT PERIODIC ORAL EVALUATION - ESTABLISHED PATIENT Routine 02/14/2025 3:00 PM EDT BITEWINGS - 4 RADIOGRAPHIC IMAGES Routine 05/10/2024 4:00 PM EDT INTRAORAL - COMPLETE SERIES OF RADIOGRAPHIC IMAGES Routine 03/09/2023 10:00 AM EDT Encounter for dental examination from Last 3 Months or Most Recently Relevant to Health Maintenance Results * Hepatitis C Antibody with Reflex to HCV, RNA, Quantitative, Real-Time PCR (05/03/2025 3:12 PM EDT) Pathologist [facility] Hepatitis C Antibody Nonreactive Nonreactive [facility] Comment:Antibodies to HCV no t detected; does not exclude early acuteHCV infection. 05/03/2025 3:12 PM EDT 05/03/2025 4:39 PM EDT Denisa Lemus MD LAB BLOOD ORDERABLES Fin al Result Performing Organization Address [facility]/ZIP Co de Phone Number [facility] [address] [place] [phone] * HIV-1 RNA, Quantitative, Real-Time PCR (05/03/2025 3:12 PM EDT) [facility] HIV RNA PCR Qn Copies NOT DETECTED NOT DETECTED copies/mL [facility] HIV RNA PCR Qn Log Copies NOT DETECTED NOT DETECTED [facility] Comment:Result Units: Log co pies/mLThis test was performed using Real-Time Polymerase ChainReaction.Reportable Range: 20 copies/mL to 10,000,000 copies/mL(1.30 log copies/mL to 7.00 log copies/mL).THIS TEST WAS PERFORMED AT:[email or web address] [place] [phone] EVANGELISTA MD 05/03/2025 3:12 PM EDT 05/03/2025 4:39 PM EDT Denisa Lemus MD LAB BLOOD ORDERABLES Fin al Result Performing Organization Address [facility] Co de Phone Number [facility] [address] [place] [address] [phone] * RPR (Monitor) with Reflex to??Titer (05/03/2025 3:12 PM EDT) Pathologist [facility] RPR (Monitor) w/Refl Titer NON-REACTI VE NON-REACT DHRUV [facility] Comment:THIS TEST WAS PERFOR MED AT:[email or web address] [place] [phone] EVANGELISTA MD Rapid Plasma Reagin Ab Titer TNP [facility] 05/03/2025 3:12 PM EDT 05/03/2025 4:39 PM EDT us Denisa Lemus MD LAB BLOOD ORDERABLES Fin al Result [facility] [address] [place] [phone] [phone] * (ABNORMAL) Comprehensive Metabolic Panel (05/03/2025 3:12 PM EDT) Sodium 139 135 - 145 mmol/L [facility] Potassium 3.5 3.3 - 5.1 mmol/L [facility] Chloride 104 96 - 108 mmol/L [facility] Carbon Dioxide 28 22 - 29 mmol/L [facility] Anion Gap 11(L) 12 - 20 [facility] Urea Nitrogen (BUN) 10 9 - 16 mg/dL [facility] Creatinine, Serum 0.83 0.5 - 1.4 mg/dL [facility] Estimated Glomerular Filt Rate >60 [facility] Comment:Chronic Kidney Disea se: Estimated GFR < 60 mL/min/1.44s8Jringw Kidney Disease: Estimated GFR < 15 mL/min/1.73m2 Glucose 76 60 - 115 mg/dL [facility] Calcium 9.3 8.4 - 10.2 mg/dL [facility] Bilirubin, Total 0.9 0.0 - 1.0 mg/dL [facility] Aspartate Amino Transferase 35 5 - 37 U/L [facility] Alanine Aminotransferase 35 0 - 40 U/L [facility] Total Protein 7.0 6.5 - 8.0 g/dL [facility] Albumin Level 4.8 3.5 - 5.0 g/dL [facility] Alkaline Phosphatase 69 39 - 117 U/L [facility] 05/03/2025 3:12 PM EDT 05/03/2025 4:39 PM EDT us Denisa Lemus MD LAB BLOOD ORDERABLES Fin al Result Performing Organization Address [facility] Co de Phone Number [facility] [address] [place] [address] [phone] * (ABNORMAL) Lipid Panel with Reflex to Direct LDL (03/07/2025 1:54 PM EDT) Triglycerides 90 <150 mg/dL [facility] Comment:Desirable Triglyceri de: less than 150 mg/dLBorderline High Triglyceride 150-199 mg/dLHigh Triglyceride: 200-499 mg/dLVery High Triglyceride: greater than or equal to 5OO mg/dL Cholesterol 179 <200 mg/dL [facility] Comment:Desirable Cholestero l: less than 200 mg/dLBorderline High Cholesterol: 200-239 mg/dLHigh Cholesterol: greater than 239 mg/dL LDL Cholesterol Calculated 103(H) <100 mg/dL [facility] Comment:Desirable LDL: less than 100 mg/dLNear Optimal/Above Optimal LDL: 110- 129 mg/dLBorderline High LDL: 130-159 mg/dLHigh LDL: 160-189 mg/dLVery High LDL: greater than or equal to 190 mg/dL HDL Cholesterol 58 >40 mg/dL [facility] Comment:Desirable HDL: great er than 40 mg/dL Note: This HDL assay may give artificially low results in patients with liver disease. Blood 03/07/2025 1:54 PM EDT 03/07/2025 4:08 PM EDT Denisa Lemus MD LAB BLOOD ORDERABLES Fin al Result Performing Organization Address [facility] Co de Phone Number [facility] [address] [place] [address] [phone] from Last 3 Months or Most Recently Relevant to Health Maintenance Insurance [facility] N FULL [facility] LIMITED HSN FULL DENTAL[place] ADULT DENTAL - HSN FULL (MEDICAID) Care Teams Supervisor Blood Relationship Specialty Start Date End Date Denisa Lemus MD [address] [place] [phone] PCP - General Internal Medicine 03/05/25 Tasia Queen [facility] Navigator Financial Counseling and Assistance Services 10/30/24
--- OUTSIDE RECORDS SUMMARY | 2025-06-28 14:59 | XMS_ITS | Encounter Summary ---
Author Organization [email or web address] Address [address] [place] [address] 7t [place] [address] Care Team Providers Care Arc Welder Apprentice Name Role Phone Name, Rehan ABEL Primary Care Provider [phone] Tasia Queen Ana Maria MD Primary Care [...] Description 06/28/2025 3:00 PM EDT Clinical Support [facility] MEDICINE [address] [place] [phone] Alyx Vasquez, RN [address] [place] [address] On pre-exposure prophylaxis for HIV (Primary Dx) 08/12/2025 3:00 PM EST Office Visit [facility] Dental [address] [place] [address] Rut Lloyd 08/28/2025 9:15 AM EST Office Visit [facility] MEDICINE [address] [place] [address] [phone] Denisa Lemus MD [address] [place] [address] [phone] 08/30/2025 3:00 PM EST Clinical Support [facility] MEDICINE [address] [place] [address] [phone] Carolina Yanes RN documented as of this encounter Visit Diagnoses Not on filedocumented in this encounter Care Teams Arc Welder Apprentice Relationship Specialty Start Date End Date Name, MD Rehan [address] [place] [address] [phone] PCP - General Family Medicine 09/24/19 09/28/23 Denisa Lemus MD [address] [place] [phone] PCP - General Internal Medicine 03/05/25 Tasia Queen Health Navigator Financial Counseling and Assistance Services 10/30/24 documented as of this encounter
--- OUTSIDE RECORDS SUMMARY | 2025-06-28 14:59 | XMS_ITS | Encounter Summary ---
Author Organization [employer] Address [address] [place] [address] 7t [place] [address] Care Team Providers Care General Warehouse Worker Name Role Phone Name, Rehan ABEL Primary Care Provider [phone] Tasia Queen Ana Maria MD Primary Care [...] Description 06/28/2025 3:00 PM EDT Clinical Support [facility] MEDICINE [address] [place] [phone] Alyx Vasquez, RN [address] [place] [address] On pre-exposure prophylaxis for HIV (Primary Dx) 08/12/2025 3:00 PM EST Office Visit [facility] Dental [address] [place] [address] Rut Lloyd 08/28/2025 9:15 AM EST Office Visit [facility] MEDICINE [address] [place] [address] [phone] Denisa Lemus MD [address] [place] [address] [phone] 08/30/2025 3:00 PM EST Clinical Support [facility] MEDICINE [address] [place] [address] [phone] Carolina Yanes RN documented as of this encounter Visit Diagnoses Not on filedocumented in this encounter Care Teams General Warehouse Worker Relationship Specialty Start Date End Date Name, MD Rehan [address] [place] [address] [phone] PCP - General Family Medicine 09/24/19 09/28/23 Denisa Lemus MD [address] [place] [address] [phone] PCP - General Internal Medicine 03/05/25 Tasia Queen Health Navigator Financial Counseling and Assistance Services 10/30/24 documented as of this encounter
--- OUTSIDE RECORDS SUMMARY | 2025-06-28 14:59 | XMS_ITS | Encounter Summary ---
Author Organization [employer] Address [address] [place] [address] 7t [place] [address] Care Team Providers Care Community Health Nurse Name Role Phone Name, Rehan ABEL Primary Care Provider [phone] Tasia Queen Ana Maria MD Primary Care [...] Description 06/28/2025 3:00 PM EDT Clinical Support [facility] [address] [place] [phone] Alyx Vasquez, RN [address] [place] [address] On pre-exposure prophylaxis for HIV (Primary Dx) 08/12/2025 3:00 PM EST Office Visit [facility] Dental [address] [place] [address] Rut Lloyd 08/28/2025 9:15 AM EST Office Visit [facility] [address] [place] [address] [phone] Denisa Lemus MD [address] [place] [address] [phone] 08/30/2025 3:00 PM EST Clinical Support [facility] [address] [place] [address] [phone] Carolina Yanes RN documented as of this encounter Visit Diagnoses Not on filedocumented in this encounter Care Teams Community Health Nurse Relationship Specialty Start Date End Date Name, MD Rehan [address] [place] [address] [phone] PCP - General Family Medicine 09/24/19 09/28/23 Denisa Lemus MD [address] [place] [address] [phone] PCP - General Internal Medicine 03/05/25 Tasia Queen Health Navigator Financial Counseling and Assistance Services 10/30/24 documented as of this encounter
--- OUTSIDE RECORDS SUMMARY | 2025-06-28 14:59 | XMS_ITS | Encounter Summary ---
Author Organization [employer] Address [address] [place] [address] 7t [place] [address] Care Team Providers Care Rice Cleaning Machine Tender Name Role Phone Name, Rehan ABEL Primary Care Provider [phone] Tasia Queen Ana Maria MD Primary Care [...] Description 06/28/2025 3:00 PM EDT Clinical Support [facility] [address] [place] [phone] Alyx Vasquez, RN 230 [place] [address] On pre-exposure prophylaxis for HIV (Primary Dx) 08/12/2025 3:00 PM EST Office Visit [facility] Dental [address] [place] [address] Rut Lloyd 08/28/2025 9:15 AM EST Office Visit [facility] [address] [place] [address] [phone] Denisa Lemus MD [address] [place] [address] [phone] 08/30/2025 3:00 PM EST Clinical Support [facility] [address] [place] [address] [phone] Carolina Yanes RN documented as of this encounter Visit Diagnoses Not on filedocumented in this encounter Care Teams Rice Cleaning Machine Tender Relationship Specialty Start Date End Date Name, MD Rehan [address] [place] [address] [phone] PCP - General Family Medicine 09/24/19 09/28/23 Denisa Lemus MD [address] [place] [phone] PCP - General Internal Medicine 03/05/25 Tasia Queen Health Navigator Financial Counseling and Assistance Services 10/30/24 documented as of this encounter
--- OUTSIDE RECORDS SUMMARY | 2025-06-28 14:59 | XMS_ITS | Clinical Summary ---
Author Organization [facility] Address [address] [facility] [address] [place] [address] Phone Care Team Providers Care Slotter Operator Name Role Phone Pcp, Unknown Primary Care Provider Unavailabl e Allergies No known active allergies Medications No known medications Social History Tobacco Use Types Packs/Day Years Used Date Smoking Tobacco: Never Smokeless Tobacco: Never Alcohol Use Standard Drinks/Week Comments Never 0 (1 standard drink = 0.6 oz pur e alcohol) Education Answer Date Recorded Are you interested in more education? Not on karsten e 01/21/2023 Are you concerned about learning? Not on file 01/21/2023 No 01/21/2023 No 01/21/2023 Digital Access Answer Date Recorded No 02/22/2023 No 02/22/2023 No 02/22/2023 Reliable internet access at home? Not on file 02/22/2023 Device with a working camera? Not on file Sex and Gender Information Value Date Recorded Sex Assigned at Male 06/29/2019 2:32 PM EDT Legal Sex Male 2:19 PM EDT Gender Identity Male 06/29/2019 2:32 PM EDT Sexual Orientation Straight 06/29/2019 2: 32 PM EDT Last Filed Vital Signs Vital Sign Reading Time Taken Comments Blood Pressure 155/71 06/29/2019 2:28 PM EDT Pulse 64 06/29/2019 2:28 PM EDT Temperature 36.7 C (98.1 F) 06/29/2019 2:28 PM EDT Respiratory Rate 19 06/29/2019 2:28 PM EDT Oxygen Saturation 99% 06/29/2019 2:28 PM EDT Inhaled Oxygen Concentration - - Weight 81.6 kg (180 lb) 06/29/2019 2:28 PM EDT Height 175.3 cm (5' 9 ) 06/29/2019 2:28 PM EDT Body Mass Index 26.58 06/29/2019 2:28 PM EDT Plan of Treatment Not on file Medical Devices Not on file Insurance [employer] LIMITED [employer] NET F[employer] S[employer] NET FULL Media [facility] [employer] HEALTH SAFETY NET FULL Media [employer] SAF[employer] NET F[employer] Media [employer] SAF[employer] NET F[employer] Media [employer] SAF[employer] NET FULL Media [employer] SAFETY NET FULL [facility] LIMITED [facility] FULL Care Teams Slotter Operator Relationship Specialty Start Date End Date Pcp, Unknown PCP - General 06/29/19 Additional Source Comments The information contained in this document represents components of the legal health record. It is not the complete legal health record.[facility]
--- OUTSIDE RECORDS SUMMARY | 2025-06-28 15:00 | XMS_ITS | Encounter Summary ---
Author Organization [employer] Address [address] [facility] 7t [place] [address] Care Team Providers Care Rail Transportation Operator Name Role Phone Tasia Queen Ana Maria MD Primary Care Provider + Encounter Details Date Type Department Care Team (Latest Contact Info) Description 06/28/2025 3:00 PM EDT Clinical Support [facility] [address] [place], [place] [phone] Alyx Vasquez, DERRICK [address] [place] [address] On pre-exposure prophylaxis for HIV (Primary Dx) [...] Care Team (Late st Contact Info) Description 08/12/2025 3:00 PM EST Office Visit [facility] Dental 70 [place] [address] Rut Lloyd 08/28/2025 9:15 AM EST Office Visit [facility] [address] [place] [address] Denisa Lemus MD 230 [place], [place] [phone] 08/30/2025 3:00 PM EST Clinical Support [facility] [address] [place] [address] Carolina Yanes RN Scheduled Orders Name Type Priority Associated Diagnoses Orde r Schedule HIV-1 RNA, Quantitative, Real-Time PCR Lab Routine On pre-exposure prophylaxis for HIV Expected: 06/28/2025 (Approximate), Expires: 06/28/2026 documented as of this encounter Visit Diagnoses Diagnosis On pre-exposure prophylaxis for HIV- Primary documented in this encounter Care Teams Rail Transportation Operator Relationship Specialty Start Date End Date Denisa Lemus MD [address] [place] [address] PCP - General Internal Medicine 03/05/25 Tasia Queen Health Navigator Financial Counseling and Assistance Services 10/30/24 documented as of this encounter
--- OUTSIDE RECORDS SUMMARY | 2025-06-28 15:00 | XMS_ITS | Encounter Summary ---
Author Organization [employer] Address [address] [place] [address] 7t [place] [address] Care Team Providers Care Labor And Delivery Nurse Name Role Phone Name, Rehan ABEL Primary Care Provider [phone] Tasia Queen Ana Maria MD Primary Care [...] Description 06/28/2025 3:00 PM EDT Clinical Support [facility] [address] [place] [phone] Alyx Vasquez, RN 230 [place] [address] On pre-exposure prophylaxis for HIV (Primary Dx) 08/12/2025 3:00 PM EST Office Visit [facility] Dental [address] [place] [address] Rut Lloyd 08/28/2025 9:15 AM EST Office Visit [facility] [address] [place] [address] [phone] Denisa Lemus MD [address] [place] [address] [phone] 08/30/2025 3:00 PM EST Clinical Support [facility] [address] [place] [address] [phone] Carolina Yanes RN documented as of this encounter Visit Diagnoses Not on filedocumented in this encounter Care Teams Labor And Delivery Nurse Relationship Specialty Start Date End Date Name, MD Rehan [address] [place] [address] [phone] PCP - General Family Medicine 09/24/19 09/28/23 Denisa Lemus MD [address] [place] [phone] PCP - General Internal Medicine 03/05/25 Tasia Queen Health Navigator Financial Counseling and Assistance Services 10/30/24 documented as of this encounter
[2025-07-01 22:38] LABS: HIV RNA PCR Qn Copies NOT DETECTED copies/mL (NOT DETECTED); HIV RNA PCR Qn Log Copies NOT DETECTED (NOT DETECTED)
== END 2025-06-28 14:57 | disposition home or self-care (01) ==
LOC: HO.HHCL 14:56
PROVIDERS: PCP Internal Medicine; Visit Provider Internal Medicine
DX: Z11.4 Encounter for screening for human immunodeficiency virus [HIV] (principal); Z79.899 Other long term (current) drug therapy
CPT/HCPCS: 36415; 87536

== ENCOUNTER 2025-08-30 14:52 | Outpatient (REF) | payer MEDICAID, OTHER, SELFPAY ==
--- OUTSIDE RECORDS SUMMARY | 2025-08-28 09:15 | XMS_ITS | Encounter Summary ---
Author Organization [employer] Address [address] [facility] 7t [place] [address] Care Team Providers Care Sound Truck Operator Name Role Phone Tasia Queen Ana Maria MD Primary Care Provider + Encounter Details Date Type Department Care Team ([facility] st Contact Info) Description 08/28/2025 9:15 AM EST Office Visit [facility] [address] [place], [place] [phone] Denisa Lemus MD [address] [place], [place] [phone] Eczema intertrigo (Primary Dx); Onychomycosis; High liver transaminase level; Elevated blood pressure reading Social History Tobacco Use Types Packs/Day Years Used Date Smoking Tobacco: Never Passive Smoke Exposure: Never Smokeless Tobacco: Never Alcohol Use Standard Drinks/Week Comments Not Currently 0 (1 standard drink = 0.6 oz pur e alcohol) Alcohol Answer Date Recorded How often do you have a drink containing alcohol ? 2 08/28/2025 How many drinks containing a lcohol do you have on a typical day when you are drinking? 0 08/28/2025 How often do you have six or more drinks on one occasion? 0 08/28/2025 Housing Stability Answer Date Recorded What is [...] the past 12 months, has t he [employer], gas, oil or water [employer] threatened to shut off services in your [...] Sign Reading Time Taken Comments Blood Pressure 144/78 08/28/2025 9:02 AM EST Pulse 60 08/28/2025 9:02 AM EST Temperature 36.2 C (97.2 F) 08/28/2025 9:02 AM EST Respiratory Rate 16 08/28/2025 9:02 AM EST Oxygen Saturation - - Inhaled Oxygen Concentration - - Weight 85.8 kg (189 lb 3.2 oz) 08/28/2025 9:02 A M EST Height 175.3 cm (5' 9 ) 08/28/2025 9:02 AM EST Body Mass Index 27.94 08/28/2025 9:02 AM EST documented in this encounter Plan of Treatment Upcoming Encounters Date Type Department Care Team (Late st Contact Info) Description 11/04/2025 3:00 PM EST Clinical Support [facility] [address] [place] [address] Alyx Vasquez, RN 230 [place] [address] 01/23/2026 3:00 PM EDT Office Visit [facility] Dental [address] [place] [address] Inez Sue LLD [address] [place] [address] Scheduled Orders Name Type Priority Associated Diagnoses Orde r Schedule Hepatitis Panel, General Lab Routine High liver transaminase level Expected: 08/28/2025 (Approximate), Expires: 08/28/2026 documented as of this encounter Procedures Procedure Name Priority Date/Time Associated Diagnosis Comments HEPATIC FUNCTION PANEL Routine 08/30/2025 2:57 PM EST High liver transaminase level documented in this encounter Results * (ABNORMAL) Hepatic Function Panel (08/30/2025 2:57 PM EST) Bilirubin, Total 0.6 0.0 - 1.0 mg/dL [facility] Bilirubin, Direct 0.2 0.0 - 0.5 mg/dL [facility] Aspartate Amino Transferase 28 5 - 37 U/L [facility] Alanine Aminotransferase 44(H) 0 - 40 U/L [facility] Total Protein 7.8 6.5 - 8.0 g/dL [facility] Albumin Level 5.2(H) 3.5 - 5.0 g/dL [facility] Alkaline Phosphatase 78 39 - 117 U/L [facility] Blood Venous blood specimen / Unknown 08/30/2025 2:57 PM EST 08/30/2025 4:03 PM EST us Denisa Lemus MD LAB BLOOD ORDERABLES Fin al Result [facility] [address] [place] [phone] documented in this encounter Visit Diagnoses Diagnosis Eczema intertrigo- Primary Other specified erythematous condition Onychomycosis Dermatophytosis of nail High liver transaminase level Elevated blood pressure reading Elevated blood pressure reading without diagnosis of hypertension documented in this encounter Care Teams Sound Truck Operator Relationship Specialty Start Date End Date Denisa Lemus MD [address] [place] [phone] PCP - General Internal Medicine 03/05/25 Tasia Queen Health Navigator Financial Counseling and Assistance Services 10/30/24 documented as of this encounter
--- OUTSIDE RECORDS SUMMARY | 2025-08-30 15:00 | XMS_ITS | Encounter Summary ---
Author Organization [employer] Address [address] [facility] 7t [place] [address] Care Team Providers Care Nutrition Tech Name Role Phone Tasia Queen Ana Maria MD Primary Care Provider + Reason for Visit * Reason Comments Apretude Encounter Details Date Type Department Care Team (Latest Contact Info) Description 08/30/2025 3:00 PM EST Clinical Support [facility] [address] [place], [place] [phone] Diana Clarke, DERRICK 230 [place] [address] On pre-exposure prophylaxis for HIV (Primary Dx) [...] the past 12 months, has t he [employer], [employer], oil or water [employer] threatened to shut off services in your [...] as of this encounter Progress Notes * Diana Clarke RN - 08/30/2025 3:00 PM EST Pt here for 6th injection of APRETUDE (600-mg cabotegravir). Reviewed and confirmed: Negative 4th generation HIV-1 [...] not (or has consulted with a provider). N/A Pt does not have any symptoms of acute HIV (fever, fatigue, myalgia, sore throat, rash). LFTs now annually. Last done: 05/03/25 Hep B status (if stopping Descovy or Truvada): surface antigen negative 06/14/24, completed vaccine series, serologies ordered Patient questions answered. Reviewed importance of attending lab and injection appointments. Reviewed that medication is an IM injection in gluteal muscle and cannot be taken out once it is given. 600 mg cabotegravir injected IM into L gluteal muscle. Pt advised to not rub [...] HIV-1 RNA assay has been drawn at lab 05/03/25 Thorough STI testing every other visit (every 4 mos) or sooner if needed in addition to HIV testing. Last done 05/03/25, pt declined on 08/30/25. LFTs 6 months after first injection, then annually: Due 10/2025 Appointment for next injection (now every 2 mos w/ 7d ronnie period): 11/04/25 3 pm documented in this encounter Plan of Treatment Upcoming Encounters Date Type Department Care Team (Late st Contact Info) Description 11/04/2025 3:00 PM EST Clinical Support [facility] [address] [place] [address] Alyx Vasquez, RN [address] [place] [address] 01/23/2026 3:00 PM EDT Office Visit [facility] Dental [address] [place] [address] Inez Sue LLD [address] [place] [phone] Scheduled Orders Name Type Priority Associated Diagnoses Orde r Schedule HIV-1 RNA, Quantitative, Real-Time PCR Lab Routine On pre-exposure prophylaxis for HIV Expected: 08/30/2025 (Approximate), Expires: 08/30/2026 Syphilis Screen Lab Routine On pre-exposure prophylaxis for HIV Expected: 08/30/2025 (Approximate), Expires: 08/30/2026 documented as of this encounter Procedures Procedure Name Priority Date/Time Associated Diagnosis Comments POCT RAPID HIV SCREENING Routine 08/30/2025 2:59 PM EST On pre-exposure prophylaxis for HIV documented in this encounter Results * POCT Rapid HIV Screening (08/30/2025 2:59 PM EST) Blood 08/30/2025 2:59 PM EST Narrative Diana Clarke, RN - 08/30/2025 2:59 PM EST HIV ag/ab = negative Pantera Samuels MD POINT OF CARE TEST ENTER/EDIT OR DERABLES Final Result documented in this encounter Visit Diagnoses Diagnosis On pre-exposure prophylaxis for HIV- Primary documented in this encounter Administered Medications Inactive Administered Medications - up to 3 most recent administrations Medication Order MAR Action Action Date Dose Rate Site Cabotegravir ER Suspension Extended Release 600 mg 600 mg, Intramuscular, Once, On Tue08/30/25 at 1500, For 1 dose, Ventrogluteal.Indication s:On pre-exposure prophylaxis for HIV Given 08/30/2025 3:00 PM EST 600 mg Left Upper Buttock documented in this encounter Care Teams Nutrition Tech Relationship Specialty Start Date End Date Denisa Lemus MD [address] [place] [address] PCP - General Internal Medicine 03/05/25 Tasia Queen Navigator Financial Counseling and Assistance Services 10/30/24 documented as of this encounter
[2025-08-30 17:34] LABS: Alanine Aminotransferase 44 U/L (0-40); Albumin Level 5.2 g/dL (3.5-5.0); Alkaline Phosphatase 78 U/L (39-117); Aspartate Amino Transferase 28 U/L (5-37); Total Protein 7.8 g/dL (6.5-8.0)
--- OUTSIDE RECORDS SUMMARY | 2025-08-30 18:58 | XMS_ITS | Encounter Summary ---
Author Organization [employer] Address [address] [place] [address] 7t [place] [address] Care Team Providers Care Group Sales Manager Name Role Phone Name, Rehan ABEL Primary Care Provider [phone] Tasia Queen Ana Maria MD Primary Care [...] Description 11/04/2025 3:00 PM EST Clinical Support [facility] 230 [place] [address] Alyx Vasquez, RN [address] [place] [address] 01/23/2026 3:00 PM EDT Office Visit [facility] Dental 70 [place] [address] Inez Sue LLD 9 [place] [address] documented as of this encounter Visit Diagnoses Not on filedocumented in this encounter Care Teams Group Sales Manager Relationship Specialty Start Date End Date Name, MD Rehan 230 [place] [address] PCP - General Family Medicine 09/24/19 09/28/23 Denisa Lemus MD [address] [place] [address] PCP - General Internal Medicine 03/05/25 Tasia Queen Health Navigator Financial Counseling and Assistance Services 10/30/24 documented as of this encounter
--- OUTSIDE RECORDS SUMMARY | 2025-08-30 18:58 | XMS_ITS | Encounter Summary ---
Author Organization [employer] Address [address] [facility] [address] 7t [place] [address] Care Team Providers Care Postal Transportation Clerk Name Role Phone Tasia Queen Ana Maria MD Primary Care Provider + Encounter Details Date Type Department Care Team (Latest Contact Info) Description 08/28/2025 Travel Social History Tobacco Use Types Packs/Day [...] Description 11/04/2025 3:00 PM EST Clinical Support [facility] 230 [place] [address] Alyx Vasquez, DERRICK 230 [place] [address] 01/23/2026 3:00 PM EDT Office Visit [facility] Dental 70 [place] [address] Inez Sue LLD 9 [place] [address] documented as of this encounter Visit Diagnoses Not on filedocumented in this encounter Care Teams Postal Transportation Clerk Relationship Specialty Start Date End Date Anay Lemus MD [address] [place] [address] PCP - General Internal Medicine 03/05/25 Tasia Queen Health Navigator Financial Counseling and Assistance Services 10/30/24 documented as of this encounter
--- OUTSIDE RECORDS SUMMARY | 2025-08-30 18:58 | XMS_ITS | Encounter Summary ---
Author Organization [employer] Address [address] [place] [address] 7t [place] [address] Care Team Providers Care Wood Pile Driver Operator Name Role Phone Name, Rehan ABEL Primary Care Provider [phone] Tasia Queen Ana Maria MD Primary Care [...] Description 11/04/2025 3:00 PM EST Clinical Support [facility] [address] [place] [address] Alyx Vasquez, RN [address] [place] [address] 01/23/2026 3:00 PM EDT Office Visit L[facility]ado [facility] Dental 70 [place] [address] Inez Sue LLD 9 [place] [address] documented as of this encounter Visit Diagnoses Not on filedocumented in this encounter Care Teams Wood Pile Driver Operator Relationship Specialty Start Date End Date Name, MD Rehan 230 [place] [address] PCP - General Family Medicine 09/24/19 09/28/23 Denisa Lemus MD [address] [place] [address] PCP - General Internal Medicine 03/05/25 Tasia Queen Health Navigator Financial Counseling and Assistance Services 10/30/24 documented as of this encounter
--- OUTSIDE RECORDS SUMMARY | 2025-08-30 18:58 | XMS_ITS | Clinical Summary ---
Author Organization [facility] Address [address] [facility] [address] [place] [phone] Phone Care Team Providers Care V Belt Mold Assembler And Curer Name Role Phone Pcp, Unknown Primary Care [...] file Medical Devices Not on file Insurance [employer] NET FULL [employer] NET FULL [employer] NET FULL [employer] LIMITED HEALTH SAFETY NET FULL Quik[employer] SAF[employer] NET FULL Qu[employer] SAFETY NET FULL Qu[employer] SAFETY NET FULL [employer] SAFETY NET FULL [facility] LIMITED [facility] FULL Care Teams V Belt Mold Assembler And Curer Relationship Specialty Start Date End Date Pcp, Unknown PCP - General 06/29/19 Additional Source Comments The information contained in this document represents components of the legal health record. It is not the complete legal health record.[facility]
--- OUTSIDE RECORDS SUMMARY | 2025-08-30 18:58 | XMS_ITS | Encounter Summary ---
Author Organization [employer] [facility] Address [address] [place] [address] 7t [place] [address] Care Team Providers Care Shoe Folder Name Role Phone Name, Rehan ABEL Primary Care Provider [phone] Tasia Queen Ana Maria MD Primary Care [...] Description 11/04/2025 3:00 PM EST Clinical Support [facility] [address] [place] [address] Alyx Vasquez, RN [address] [place] [address] 01/23/2026 3:00 PM EDT Office Visit [facility] Dental [address] [place] [address] Inez Sue LLD 9 [place] [address] documented as of this encounter Visit Diagnoses Not on filedocumented in this encounter Care Teams Shoe Folder Relationship Specialty Start Date End Date Name, MD Rehan 230 [place] [address] PCP - General Family Medicine 09/24/19 09/28/23 Denisa Lemus MD 230 [place] [address] PCP - General Internal Medicine 03/05/25 Tasia Queen Health Navigator Financial Counseling and Assistance Services 10/30/24 documented as of this encounter
--- OUTSIDE RECORDS SUMMARY | 2025-08-30 18:58 | XMS_ITS | Clinical Summary ---
Author Organization [employer] Address [address] [facility] 7t [place] [address] Care Team Providers Care Spindle Frame Carver Name Role Phone Tasia Queen Ana Maria MD Primary Care Provider + Allergies No known active allergies Medications doxycycline (Vibra-Tabs) 100 MG tablet Take two tablets together as directed (up to 3 days after exposure) 30 tablet 2 03/07/20 25 Active Apretude 600 MG/3ML Suspension Extended Release INJECT INTRAMUSCULARLY DIRECTED. BRING TO OFFICE FOR ADMINISTRATION. 3 mL 1 08/30/2025 2:59 PM EST 05/15/20 25 Active hydrocortisone 1 % cream Apply topically if needed each day for irritation. 30 g 3 08/28/2025 11:14 AM EST 08/28/20 25 Active ciclopirox (Penlac) 8 % solution Apply topically at bedtime. 6 mL 11 08/28/2025 11:14 AM EST 08/28/20 25 Active clotrimazole-b etamethasone (Lotrisone) cream Apply topically 2 times daily for 28 days. 30 g 1 08/28/2025 11:14 AM EST 08/28/20 25 025 Active Blood Pressure Monitoring (Blood Pressure Cuff) misc Use daily as prescribed 1 each 08/28/20 25 Active Hospital, Clinic, or Other Facility Administered Medication Ordered Dose Route Frequency Start Date End Date Status Cabotegravir ER Suspension Extended Release 600 mgIndications:On pre-exposure prophylaxis for HIV 600 mg IM Once 08/30/2025 08/30/2025 Ended Active Problems Problem Noted Date Diagnosed Date Onychomycosis 08/28/2025 High liver transaminase level 08/28/2025 Elevated blood pressure reading 08/28/2025 Eczema intertrigo 03/05/2025 Assessment & Plan (03/05/2025 [...] results -alarm signs and symptoms -added to [facility] New Patient wait list as of [...] Encounters Date Type Department Care Team Description 08/30/2025 3:00 PM EST Clinical Support [address] [address] Diana Clarke, RN On pre-exposure prophylaxis for HIV (Primary Dx) 08/28/2025 9:15 AM EST Office Visit [address] [address] Denisa Lemus MD Eczema intertrigo (Primary Dx); Onychomycosis; High liver transaminase level; Elevated blood pressure reading 08/28/2025 Travel 08/27/2025 Travel 08/14/2025 Patient Outreach [address] [address] Denisa Lemus MD Pre-visit Planning (SDOH screening completed on 03/05/2025) 08/12/2025 3:00 PM EST Office Visit [facility] [address] [place] [address] Rut Lloyd Encounter for dental examination (Primary Dx); Periodontal disease 06/28/2025 3:00 PM EDT Clinical Support [address] [address] Alyx Vasquez, RN On pre-exposure prophylaxis for HIV (Primary Dx) 06/28/2025 Orders Only [address] [address] Denisa Lemus MD 06/28/2025 Travel 06/21/2025 Travel from Last 3 Months Immunizations Immunization [...] 16 08/28/2025 9:02 AM EST Oxygen Saturation 99% 12/04/2024 10:53 AM EDT Inhaled Oxygen Concentration - - Weight 85.8 kg (189 lb 3.2 oz) 08/28/2025 9:02 A M EST Height 175.3 cm (5' 9 ) 08/28/2025 9:02 AM EST Body Mass Index 27.94 08/28/2025 9:02 AM EST Plan of Treatment Upcoming Encounters Date Type Department Care Team (Late st Contact Info) Description 11/04/2025 3:00 PM EST Clinical Support [facility] MEDICINE [address] [place] [address] Alyx Vasquez, RN [address] [place] [address] 01/23/2026 3:00 PM EDT Office Visit [facility] Dental [address] [place] [address] Inez Sue LLD [address] [place] [address] Health Maintenance Due Date Last Done Comments HPV Vaccines (1 - 3-dose series) 2004 IPV Vaccines (2 of 3 - Adult catch-up series) 05/15/2018 04/17/2018 COVID-19 Vaccine ( - 2024- season) 2025 10/26/2021, 03/08/2021, 02/08/2021 Influenza Vaccine (#1) 2025 2, 07/19/2022, 10/13/2021, Additional history exists Dental Oral Exam 02/10/2026 08/12/2025, , 08/21/2024, Additional history exists Dental Prophylaxis 02/10/2026 08/12/2025, 0 02/14/2025, 08/21/2024, Additional history exists Depression Screening 03/05/2026 03/05/2025, 03/05/20 Disability Screening 03/05/2026 03/05/2025 SDOH Screening 03/05/2026 03/05/2025 Family Planning (PISQ) 03/07/2026 03/07/2025 Dental X-Ray: Full Mouth 03/10/2026 023, 04/10/2018, 05/27/2016, Additional history exists Dental X-Ray: Bitewings 08/13/2026 08/12/20, 05/10/2024, 03/09/2023, Additional history exists Alcohol/Substance Use Screening 08/28/2026 08/28/2025 Tobacco Screening 08/28/2026 08/28/2025 DTaP/Tdap/Td Vaccines (2 - Td or Tdap) 04/17/2028 04/17/2018 Lipid Panel 03/07/2030 03/07/2025 Zoster Vaccines (1 of 2) 2039 RSV Patients and Patients Aged 60 years or older (1 - 1-dose 75+ series) 2064 Hepatitis B Vaccines Completed 10/13/2021, 08/13/2019, 07/16/2019 Hepatitis C Screening Completed 05/03/2025 , 03/07/2025, 11/22/2024, Additional history exists HIV Screening Completed 06/28/2025, 04/2025, 03/07/2025, Additional history exists HIB Vaccines Aged Out [...] PM EST On pre-exposure prophylaxis for HIV HEPATIC FUNCTION PANEL Routine 08/30/2025 2:57 PM EST High liver transaminase level CASE PRESENTATION, DETAILED AND EXTENSIVE TREATMENT PLANNING Routine 08/12/2025 3:00 PM EST ORAL HYGIENE INSTRUCTIONS Routine 08/12/2025 3:00 PM EST BITEWINGS - 4 RADIOGRAPHIC IMAGES Routine 08/12/2025 3:00 PM EST Full PROPHYLAXIS - ADULT Routine 08/12/2025 3:00 PM EST PERIODIC ORAL EVALUATION - ESTABLISHED PATIENT Routine 08/12/2025 3:00 PM EST HIV 1 RNA, QUANTITATIVE REAL TIME PCR Routine 06/28/2025 3:29 PM EDT POCT RAPID HIV SCREENING Routine 06/28/2025 3:21 PM EDT On pre-exposure prophylaxis for HIV HEPATITIS C AB W/REFL TO HCV RNA, QN, PCR Routine 05/03/2025 3:12 PM EDT LIPID PANEL WITH REFLEX TO DIRECT LDL Routine 03/07/2025 1:54 PM EDT Overweight INTRAORAL - COMPLETE SERIES OF RADIOGRAPHIC IMAGES Routine 03/09/2023 10:00 AM EDT Encounter for dental examination from Last 3 Months or Most Recently Relevant to Health Maintenance Results * POCT Rapid HIV Screening (08/30/2025 2:59 PM EST) Only the most recent of2 resultswithin the time period is included. Blood 08/30/2025 2:59 PM EST Narrative Diana Clarke, DERRICK - 08/30/2025 2:59 PM EST HIV ag/ab = negative Pantera Samuels MD POINT OF CARE TEST ENTER/EDIT OR DERABLES Final Result * (ABNORMAL) Hepatic Function Panel (08/30/2025 2:57 PM EST) Bilirubin, Total 0.6 0.0 - 1.0 mg/dL [facility] Bilirubin, Direct 0.2 0.0 - 0.5 mg/dL [facility] Aspartate Amino Transferase 28 5 - 37 U/L [facility] Alanine Aminotransferase 44(H) 0 - 40 U/L [facility] Total Protein 7.8 6.5 - 8.0 g/dL [facility] Albumin Level 5.2(H) 3.5 - 5.0 g/dL [facility] Alkaline Phosphatase 78 39 - 117 U/L [facility] Blood Venous blood specimen / Unknown 08/30/2025 2:57 PM EST 08/30/2025 4:03 PM EST Denisa Lemus MD LAB BLOOD ORDERABLES Fin al Result Performing Organization Address [facility] Co de Phone Number [facility] [address] [place] [phone] * HIV-1 RNA, Quantitative, Real-Time PCR (06/28/2025 3:29 PM EDT) Pathologist [facility] HIV RNA PCR Qn Copies NOT DETECTED NOT DETECTED copies/mL [facility] HIV RNA PCR Qn Log Copies NOT DETECTED NOT DETECTED [facility] Comment:Result Units: Log co pies/mLThis test was performed using Real-Time Polymerase ChainReaction.Reportable Range: 20 copies/mL to 10,000,000 copies/mL(1.30 log copies/mL to 7.00 log copies/mL).THIS TEST WAS PERFORMED AT:[facility] [place] [id number] EVANGELISTA MD 06/28/2025 3:29 PM EDT 06/28/2025 4:09 PM EDT Denisa Lemus MD LAB BLOOD ORDERABLES Fin al Result Performing Organization Address [facility]/ZIP Co de Phone Number [facility] [address] [place] [phone] * Hepatitis C Antibody with Reflex to HCV, RNA, Quantitative, Real-Time PCR (05/03/2025 3:12 PM EDT) Hepatitis C Antibody Nonreactive Nonreactive [facility] Comment:Antibodies to HCV no t detected; does not exclude early acuteHCV infection. 05/03/2025 3:12 PM EDT 05/03/2025 4:39 PM EDT us Denisa Lemus MD LAB BLOOD ORDERABLES Fin al Result [facility] [address] [place] [phone] * (ABNORMAL) Lipid Panel with Reflex to Direct LDL (03/07/2025 1:54 PM EDT) Triglycerides 90 <150 mg/dL [facility] Comment:Desirable Triglyceri de: less than 150 mg/dLBorderline High Triglyceride 150-199 mg/dLHigh Triglyceride: 200-499 mg/dLVery High Triglyceride: greater than or equal to 5OO mg/dL Cholesterol 179 <200 mg/dL [facility] Comment:Desirable Cholestero l: less than 200 mg/dLBorderline High Cholesterol: 200-239 mg/dLHigh Cholesterol: greater than 239 mg/dL LDL Cholesterol Calculated 103(H) <100 mg/dL [facility] Comment:Desirable LDL: less than 100 mg/dLNear Optimal/Above Optimal LDL: 110- 129 mg/dLBorderline High LDL: 130-159 mg/dLHigh LDL: 160-189 mg/dLVery High LDL: greater than or equal to 190 mg/dL HDL Cholesterol 58 >40 mg/dL [facility] Comment:Desirable HDL: great er than 40 mg/dL Note: This HDL assay may give artificially low results in patients with liver disease. Blood 03/07/2025 1:54 PM EDT 03/07/2025 4:08 PM EDT Denisa Lemus MD LAB BLOOD ORDERABLES Fin al Result [facility] [address] [place] [phone] from Last 3 Months or Most Recently Relevant to Health Maintenance Insurance [employer] LIMITED N FULL [employer] LIMITED N FULL [facility] ADULT DENTAL - HSN FULL (MEDICAID) Care Teams Spindle Frame Carver Relationship Specialty Start Date End Date Denisa Lemus MD [address] [place] [phone] PCP - General Internal Medicine 03/05/25 Tasia Queen Health Navigator Financial Counseling and Assistance Services 10/30/24
--- OUTSIDE RECORDS SUMMARY | 2025-08-30 18:58 | XMS_ITS | Encounter Summary ---
Author Organization [employer] Address [address] [place] [address] [address] [place] [address] Care Team Providers Care Pharmacy Salesperson Name Role Phone Name, Rehan ABEL Primary Care Provider [phone] Tasia Queen Ana Maria MD Primary Care [...] Description 11/04/2025 3:00 PM EST Clinical Support [facility] MEDICINE [address] [place] [address] Alyx Vasquez, RN [address] [place] [address] 01/23/2026 3:00 PM EDT Office Visit [facility] [address] [place] [address] Inez Sue LLD [address] [place] [address] documented as of this encounter Visit Diagnoses Not on filedocumented in this encounter Care Teams Pharmacy Salesperson Relationship Specialty Start Date End Date Name, MD Rehan [address] [place] [address] PCP - General Family Medicine 09/24/19 09/28/23 Denisa Lemus MD [address] [place] [address] PCP - General Internal Medicine 03/05/25 Tasia Queen Health Navigator Financial Counseling and Assistance Services 10/30/24 documented as of this encounter
--- OUTSIDE RECORDS SUMMARY | 2025-08-30 18:58 | XMS_ITS | Encounter Summary ---
Author Organization [employer] Address [address] [facility] [address] 7[address] [place] [address] Care Team Providers Care Telephone Lineworker Name Role Phone Tasia Queen Ana Maria MD Primary Care Provider + Encounter Details Date Type Department Care Team (Latest Contact Info) Description 08/27/2025 Travel Social History Tobacco Use Types Packs/Day [...] Description 11/04/2025 3:00 PM EST Clinical Support [facility] MEDICINE [address] [place] [address] Alyx Vasquez, DERRICK [address] [place] [address] 01/23/2026 3:00 PM EDT Office Visit [facility] Dental [address] [place] [address] Inez Sue LLD [address] [place] [address] documented as of this encounter Visit Diagnoses Not on filedocumented in this encounter Care Teams Telephone Lineworker Relationship Specialty Start Date End Date Denisa Lemus MD [address] [place] [phone] PCP - General Internal Medicine 03/05/25 Tasia Queen Health Navigator Financial Counseling and Assistance Services 10/30/24 documented as of this encounter
--- OUTSIDE RECORDS SUMMARY | 2025-08-30 18:58 | XMS_ITS | Encounter Summary ---
Author Organization [employer] [facility] Address [address] [place] [address] 7t [place] [address] Care Team Providers Care Specialty Trimmer Name Role Phone Name, Rehan ABEL Primary Care Provider [phone] Tasia Queen Ana Maria MD Primary Care [...] Description 11/04/2025 3:00 PM EST Clinical Support [facility] MEDICINE [address] [place] [address] Alyx Vasquez, RN [address] [place] [address] 01/23/2026 3:00 PM EDT Office Visit [facility] [address] [place] [address] Inez Sue LLD [address] [place] [address] documented as of this encounter Visit Diagnoses Not on filedocumented in this encounter Care Teams Specialty Trimmer Relationship Specialty Start Date End Date Name, MD Rehan [address] [place] [address] PCP - General Family Medicine 09/24/19 09/28/23 Denisa Lemus MD [address] [place] [address] PCP - General Internal Medicine 03/05/25 Tasia Queen Health Navigator Financial Counseling and Assistance Services 10/30/24 documented as of this encounter
--- OUTSIDE RECORDS SUMMARY | 2025-08-30 18:58 | XMS_ITS | Encounter Summary ---
Author Organization [employer] [facility] Address [address] [place] [address] 7t [place] [address] Care Team Providers Care Mold Cleaning And Storage Supervisor Name Role Phone Name, Rehan ABEL Primary Care Provider [phone] Tasia Queen Ana Maria MD Primary Care [...] 3:00 PM EST Clinical Support [facility] MEDICINE [address] [place] [address] Alyx Vasquez, RN [address] [place] [address] 01/23/2026 3:00 PM EDT Office Visit [facility] Dental [address] [place] [address] Inez Sue LLD [address] [place] [address] documented as of this encounter Visit Diagnoses Not on filedocumented in this encounter Care Teams [employer] Cleaning And Storage Supervisor Relationship Specialty Start Date End Date Name, MD Rehan [address] [place] [address] PCP - General Family Medicine 09/24/19 09/28/23 Denisa Lemus MD [address] [place] [address] PCP - General Internal Medicine 03/05/25 Tasia Queen Health Navigator Financial Counseling and Assistance Services 10/30/24 documented as of this encounter
--- OUTSIDE RECORDS SUMMARY | 2025-08-30 18:58 | XMS_ITS | Encounter Summary ---
Author Organization [employer] [facility] Address [address] [place] [address] 7t [place] [address] Care Team Providers Care Salesperson Corsets Name Role Phone Name, Rehan ABEL Primary Care Provider [phone] Tasia Queen Ana Maria MD Primary Care [...] Description 11/04/2025 3:00 PM EST Clinical Support [facility] MEDICINE [address] [place] [address] Alyx Vasquez, RN [address] [place] [address] 01/23/2026 3:00 PM EDT Office Visit [facility] [address] [place] [address] Inez Sue LLD [address] [place] [address] documented as of this encounter Visit Diagnoses Not on filedocumented in this encounter Care Teams Salesperson Corsets Relationship Specialty Start Date End Date Name, MD Rehan [address] [place] [address] PCP - General Family Medicine 09/24/19 09/28/23 Denisa Lemus MD [address] [place] [address] PCP - General Internal Medicine 03/05/25 Tasia Queen Health Navigator Financial Counseling and Assistance Services 10/30/24 documented as of this encounter
[2025-08-31 08:35] LABS: Syphilis Screen Nonreactive (Nonreactive)
[2025-08-31 08:50] LABS: HBS Num1 70.89 mIU/mL (0-7.99); HBc Num1 0.06 S/CO (0.00-0.79); HBsAGNum1 0.29 S/CO (0.00-0.99); Hepatitis A Antibody IgM 0.17 Index (0-0.79); Hepatitis B Surface Antigen Negative (Negative); ~HepC Num1 0.09 S/CO (0.00-0.79); ~Hepatitis A Antibody IgM Nonreactive (Nonreactive); ~Hepatitis B Surface Antibody REACTIVE (Nonreactive); ~Hepatitis C Antibody Nonreactive (Nonreactive)
[2025-09-03 20:19] LABS: HIV RNA PCR Qn Copies NOT DETECTED copies/mL (NOT DETECTED); HIV RNA PCR Qn Log Copies NOT DETECTED (NOT DETECTED)
== END 2025-08-30 14:53 | disposition home or self-care (01) ==
LOC: HO.HHCL 14:52
PROVIDERS: PCP Internal Medicine; Visit Provider Internal Medicine
DX: Z11.59 Encounter for screening for other viral diseases (principal); Z11.4 Encounter for screening for human immunodeficiency virus [HIV]; Z11.3 Encounter for screening for infections with a predominantly sexual mode of transmission; R74.01 Elevation of levels of liver transaminase levels; Z79.899 Other long term (current) drug therapy
CPT/HCPCS: 36415; 80076; 86704; 86706; 86709; 86780; 86803; 87340; 87536